=== PATIENT | female | born 1945 | race Caucasian/White ===

== ENCOUNTER → 2019-02-19 14:52 | Outpatient (CLI) | payer MEDICARE, OTHER, SELFPAY ==
--- NOTE | 2019-02-19 15:00 | DI.RAD.S_ITS ---
PROCEDURE: XR CHEST 2V INDICATIONS: MUSCLE CRAMPING TECHNIQUE: 2 views of the chest were acquired. COMPARISON: [facility], CR, XR CHEST 1 VIEW, 02/05/2018, 10:30. FINDINGS: Surgical changes and devices: None. Lungs and pleura: Lungs are clear. No pleural effusions or pneumothorax. Mediastinum: Mediastinal contours are normal. Heart size is normal. Bones and chest wall: No suspicious bony abnormalities. Soft tissues appear unremarkable. Note is made of convex rightward thoracolumbar junction and convex left toward lumbosacral spine scoliosis. Surgical clips clustered posterior left upper quadrant suggests prior splenectomy. IMPRESSION: A source of muscle cramping is not found. 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 Scoliosis as discussed, no definite acute disease. Dictated by: Dc Vann M.D. on 02/19/2019 at 16:12 Approved by: Dc Vann M.D. on 02/19/2019 at 16:13
== END ==
PROVIDERS: Visit Provider Internal Medicine
DX: R25.2 Cramp and spasm (principal)
CPT/HCPCS: 71046

== ENCOUNTER → 2019-02-21 10:45 | Outpatient (CLI) | payer MEDICARE, OTHER, SELFPAY ==
[2019-02-21 11:25] LABS: BUN Creatinine Ratio 18.3 (6-22); Blood Urea Nitrogen 11 mg/dL (7-17); Calcium 10.2 mg/dL (8.4-10.2); Carbon Dioxide 29 mmol/L (22-32); Chloride 97 mmol/L (98-107); Creatine Kinase 38 U/L (30-135); Estimated Glomerular Filt Rate > 60.0 mL/min (>60); Glucose 92 mg/dL (80-110); HEMOLYSIS < 15 (0-50); Magnesium 2.3 mg/dL (1.6-2.3); Potassium 3.9 mmol/L (3.4-5.1); Sodium 136 mmol/L (137-145)
[2019-02-21 16:02] LABS: Calcium 24 Hour Urine 273 mg/day (100-300); Calcium Urine Random 10.9; Collection Time Urine 24 Hours; Total Volume Urine 2500 mL
[2019-02-21 16:06] LABS: Collection Time Urine 24 Hours; Creatinine 24 Hour Urine 658 mg/day (800-1800); Creatinine Urine Random 26.3 mg/dL; Total Volume Urine 2500 mL
[2019-02-23 11:51] LABS: Aldolase 3.8 U/L (< 8.2)
[2019-02-23 13:57] LABS: Ionized Calcium 5.5 mg/dL (4.8-5.6)
[2019-02-23 15:40] LABS: Parathyroid Hormone Int 37 pg/mL (14-64)
== END ==
PROVIDERS: Visit Provider Internal Medicine
DX: E83.52 Hypercalcemia (principal); R25.2 Cramp and spasm
CPT/HCPCS: 36415; 80048; 82085; 82330; 82340; 82550; 82570; 83735; 83970

== ENCOUNTER → 2019-03-22 10:21 | Outpatient (CLI) | payer MEDICARE, OTHER, SELFPAY ==
[2019-03-22 10:41] LABS: Bacteria Urine None Seen; RBC Urine None Seen (0-5/HPF); WBC Urine None Seen (0-5/HPF)
[2019-03-22 11:52] LABS: Hematocrit 41.3 % (36-46); Hemoglobin 13.5 g/dL (12.0-16.0); Mean Corpuscular HGB Conc 32.8 % (30-36); Mean Corpuscular Hemoglobin 30.4 PG (26-34); Mean Corpuscular Volume 92.7 fL (80-100); Platelet Count 419 X10^3/uL (150-400); Red Blood Cell Count 4.46 X10^6/uL (4.0-5.2)
[2019-03-22 11:54] LABS: Add Manual Diff / Slide Review YES
[2019-03-22 11:55] LABS: Appearance Urine UA CLEAR; Bilirubin Urine UA NEGATIVE (NEGATIVE); Color Urine UA YELLOW; Glucose Urine UA NEGATIVE (Negative); Hemoglobin A1C% w Est Avg Glu 5.2 % (4.0-6.0); Ketones Urine UA NEGATIVE (NEGATIVE); Leukocyte Esterase Urine UA NEGATIVE (NEGATIVE); Nitrite Urine UA NEGATIVE (Negative); Occult Blood Urine UA NEGATIVE (Negative); Protein Urine UA NEGATIVE (Negative); Specific Gravity Urine UA 1.015 (1.000-1.035); Urobilinogen Urine UA 0.2 E.U./dL (0.2)
[2019-03-22 12:16] LABS: BUN Creatinine Ratio 16.7 (6-22); Blood Urea Nitrogen 10 mg/dL (7-17); Carbon Dioxide 26 mmol/L (22-32); Chloride 99 mmol/L (98-107); Estimated Glomerular Filt Rate > 60.0 mL/min (>60); Glucose 98 mg/dL (80-110); HEMOLYSIS < 15 (0-50); Potassium 4.1 mmol/L (3.4-5.1); Sodium 134 mmol/L (137-145)
[2019-03-22 12:24] LABS: Neutrophils Absolute Manual 2150 /uL (3000-5900); Total Cells Counted 100
[2019-03-22 12:26] LABS: RBC Morphology Norm
[2019-03-22 12:33] LABS: Culture Indicated Urine Cult Not Indicated; Urine Comments Microscopic Normal
== END ==
PROVIDERS: Visit Provider Orthopaedic Surgery
DX: Z01.818 Encounter for other preprocedural examination (principal); Z01.812 Encounter for preprocedural laboratory examination; N39.9 Disorder of urinary system, unspecified; Z13.1 Encounter for screening for diabetes mellitus; R73.9 Hyperglycemia, unspecified
CPT/HCPCS: 36415; 80048; 81001; 83036; 85025; 93005; 93010

== ENCOUNTER 2019-05-20 06:00 | Inpatient (IN) | payer MEDICARE, OTHER, SELFPAY ==
[2019-05-13 12:44] VITALS: BMI 15.9
[2019-05-20] VITALS (43 sets, daily range): BP systolic 65–182; BP diastolic 29–91; PULSE 38–127; RESP 9–22; TEMP 36.4–36.6; O2SAT 88–100; BMI 16.2
--- NOTE | 2019-05-20 | DI.RAD.S_ITS ---
PROCEDURE: XR PELVIS 1-2V INDICATIONS: RIGHT ANTERIOR TOTAL HIP TECHNIQUE: Intra-operative view of the pelvis and hip acquired. COMPARISON: None. FINDINGS: Bones: Intraoperative devices prior to placement of arthroplasty prostheses are in expected positions. No fractures or suspicious bony lesions. Soft tissues: Expected intra-articular gas is present. IMPRESSION: Expected intraoperative appearance of right hip arthroplasty. Dictated by: Kristan Cardoso M.D. on 05/20/2019 at 9:04 Approved by: Kristan Cardoso M.D. on 05/20/2019 at 9:05
--- NOTE | 2019-05-20 06:00 | DI.RAD.S_ITS ---
PROCEDURE: XR PELVIS 1-2V INDICATIONS: POST OPERATIVE RIGHT HIP TECHNIQUE: Single view(s) of the pelvis acquired. COMPARISON: [facility], CR, XR PELVIS 1-2V, 05/20/2019, 8:37. FINDINGS: Bones: No fractures or dislocations. No suspicious bony lesions. Post surgical changes related to right hip arthroplasty. Expected postoperative alignment Soft tissues: Overlying right hip soft tissue post surgical changes IMPRESSION: Expected postoperative alignment Dictated by: Roberto Castellano M.D. on 05/20/2019 at 11:02 Approved by: Roberto Castellano M.D. on 05/20/2019 at 11:03
[2019-05-20] MEDS: LACTATED RINGERS 1,000 ML 42 ML IV (07:07)
[2019-05-20] MEDS: PREGABALIN 75 MG CAPSULE PO (07:12)
[2019-05-20] MEDS: CELECOXIB 200 MG CAPSULE PO (07:12)
[2019-05-20] MEDS: ACETAMINOPHEN 325 MG TABLET 975 MG PO (07:12)
--- NOTE | 2019-05-20 07:57 | PM.PREOP ---
Pre-operative Note Interval Note History & Physical reviewed/Exam performed by Physician: Yes Changes to H&P: No
--- NOTE | 2019-05-20 08:41 | SUR.OPER ---
Supine, head on pillow, torso on transfer sheet. Iliac crest at flex of foot end of table. Both arms secured on arm boards <90 degrees abduction.
[2019-05-20] MEDS: CEFAZOLIN 1 GM VIAL IV (08:50)
[2019-05-20] MEDS: ROPIVACAINE 0.5% PF 5 MG/ML 20ML VIAL 10 ML INJ (08:52)
[2019-05-20] MEDS: KETOROLAC 30 MG/ML VIAL IV (08:54)
[2019-05-20] MEDS: MORPHINE 4 MG/ML INJ INJ (08:55)
--- NOTE | 2019-05-20 09:35 | SUR.PREOP ---
Dr. Ma notified pt given Celebrex per order. No new orders. Glasses to given to spouse
--- NOTE | 2019-05-20 09:47 | PM.OP.1 ---
Operative Date/Time/Diagnoses Date of procedure: 05/20/19 Time of procedure: 09:47 Pre-op diagnosis: Right hip degenerative joint disease Post-op diagnosis: same Procedure & Clinicians Procedure: Right total hip arthroplasty, direct anterior approach (CPT code 41208 with workers compensation claims assistant) Same procedure as scheduled: Yes Indications: Patient is an 73-year-old female with severe right hip DJD. The patient has pain with activities and at rest, limited ambulation and activity tolerance, difficulties with ADLs, and failure of conservative treatment. We have discussed the nature of condition, treatment options, risks and benefits, and patient elects to proceed with total hip arthroplasty via direct anterior approach and gives informed consent. Surgeon: Benjamín Ma Fructose Loader: Brian Carlton Anesthesia Type: General Operative Notes Closure Type: primary Specimen(s): none sent Prosthetic devices, grafts, tissues, transplants, or devices: Acetabulum: Bell and Nephew R3 acetabular component size 50 mm Femoral component: Bell and Nephew Anthology stem size 7 with standard offset Femoral head: 32 mm -3 cobalt chrome Estimated Blood Loss (mL): 200 Blood products transfused: none Procedure in detail: Patient brought to the operating room and after satisfactory induction of a general anesthetic and administration of IV antibiotics was placed in the supine position on the [place] table with all bony prominences well padded and the feet in the ski boots. Right hip and lower extremity prepped and draped in the usual sterile fashion, and then a longitudinal incision created just distal and lateral to the ASIS. This was carried down to the fascia which was then divided longitudinally and the tensor fascia brock muscle was stripped and retracted posteriorly into the intermuscular interval. Cobra retractor placed at the superior femoral neck and a Cobra retractor placed distally. The anterior circumflex vessels were identified clamped and cauterized. The pericapsular fat was then excised and medial retractors placed. Capsulotomy performed in the anterior medial capsule was retracted medially and the lateral capsule was excised. Femoral neck cut was then determined with fluoroscopic assistance, then the femoral neck cut made with the oscillating saw and femoral head removed with a corkscrew device. Acetabular retractors then placed an acetabular labrum and osteophytes were excised. Sequential reaming of the acetabulum to 49 mm was performed with an excellent fit and stability with a 49 trial. Fluoroscopic images with the trial in place showed excellent position and alignment. The trial was then removed and a size 50 mm Bell and Nephew R3 acetabular component was selected inserted and impacted into position with excellent position and fixation achieved again confirmed with fluoroscopic images. Posterior and superior releases were then further performed and the leg positioned in extension external rotation and adduction. Retractors placed and the canal entered using a box osteotome followed by the canal finer and the chili pepper broach. Size 1 broach was then inserted and fluoroscopic images in AP and lateral planes confirmed satisfactory position and starting point for the broaches. The femoral canal was then broached up to a 7 with an excellent snug fit with the [address] and a trial reduction was performed with a 32 mm +0 ball. Fluoroscopic images with the hip reduced demonstrated excellent position of the implant and good leg length although slightly long. Trial and broach were then removed and the broach was replaced with a size 7 Bell and Nephew anthology stem and another trial reduction was performed with a -3 ball which revealed excellent leg length, and position and sizing of the implants. There was excellent stability to at least 90? of external rotation with negative push-pull with a bone hook. The hip was dislocated and a 32 mm -3 cobalt chrome ball was placed on the implant and impacted. The hip reduced and the above characteristics were achieved and final fluoroscopic images were satisfactory. Pericapsular tissues were infiltrated with combination of ropivacaine, morphine, and Toradol. The TFL fascia was closed with a running 1. Vicryl the subcutaneous layer was closed with 2 O Vicryl and skin closed with a running intracuticular stitch and skin adhesive. Sterile dressings applied. Anesthesia terminated, and the patient taken to postanesthetic recovery in satisfactory condition. Complications: none Condition: stable Disposition: PACU Plan for aftercare: Patient will be admitted to the acute care [facility], and anticipate discharge on postop day 1 or 2 with follow-up in office in 10-14 days. Outpatient physical therapy will be arranged and patient will gradually increase activity as tolerated. Patient will continue use of postoperative Lovenox for 10 days postop.
--- NOTE | 2019-05-20 11:09 | SUR.PHASEI ---
0945 pt arrived recovery still under the effects of sedation and when monitoring began it was noted HR was 137. Pt received 20mg of esmolol IVP by anesthesia which brought her HR down to 1 teens which appeared as afib on the monitor. HR steadily climbed back up to the 130's and pt was given 1 mg of metoprolol which eventually lowered her HR to the 70's-90's and we were able to confirm along with the results of the 12 lead pt was in Afib/Aflutter. After careful monitoring, pt was deemed stable for transferred to ICU 104 @ 1057. Report to Melissa/Portillo via phone with update upon arrival in ICU. She was left in their care in stable condition. Labs ordered by this RN as VO Dr Brumfield: CBC,CMP,BNP and cardiac enzymes. This was relayed to RN's on duty.
[2019-05-20] MEDS: LACTATED RINGERS 1,000 ML 125 ML IV ×2 (11:15→16:41)
[2019-05-20 11:18] LABS: Add Manual Diff / Slide Review NO; Basophils Absolute Auto 100 /uL (0-100); Basophils Percent Auto 0.8 % (0-2); Eosinophils Absolute Auto 0 /uL (0-450); Eosinophils Percent Auto 0.3 % (2-4); Hematocrit 35.6 % (36-46); Hemoglobin 12.2 g/dL (12.0-16.0); Lymphocytes Absolute Auto 1600 /uL (1100-4500); Lymphocytes Percent Auto 16.1 % (25-40); Mean Corpuscular HGB Conc 34.3 % (30-36); Mean Corpuscular Hemoglobin 31.2 PG (26-34); Mean Corpuscular Volume 90.9 fL (80-100); Monocytes Absolute Auto 400 /uL (0-900); Monocytes Percent Auto 3.9 % (3-14); Neutrophils Absolute Auto 7800 /uL (1500-7000); Neutrophils Percent Auto 78.9 % (50-75); Platelet Count 341 X10^3/uL (150-400); Red Blood Cell Count 3.92 X10^6/uL (4.0-5.2); Red Cell Distribution Width 12.8 % (11.6-14.8); White Blood Cell Count 9.9 X10^3/uL (4.5-11.0)
--- NOTE | 2019-05-20 11:30 | PT.IPTN ---
Current Diagnoses Unilateral primary osteoarthritis, right hip (05/20/19) Scoliosis, unspecified (05/20/19) Surgery Performed Operation Date: 05/20/19 07:45 Actual Procedures p Total Hip Arthroplasty/Anterior Approach(Right) - Benjamín Ma MD Physical Therapy Treatment Note Notes Pt only recently arrived to ICU, RN reports pt not ready yet, ok to check back later in the afternoon.
[2019-05-20 11:33] LABS: Alanine Aminotransferase 63 IU/L (9-52); Albumin 3.5 g/dL (3.5-5.0); Albumin Globulin Ratio 1.5 (1.0-2.8); Alkaline Phosphatase 59 U/L (38-126); Aspartate Aminotransferase 61 IU/L (14-36); BUN Creatinine Ratio 17.5 (6-22); Bilirubin Total 0.4 mg/dL (0.2-1.3); Blood Urea Nitrogen 7 mg/dL (7-17); Calcium 8.9 mg/dL (8.4-10.2); Carbon Dioxide 25 mmol/L (22-32); Chloride 105 mmol/L (98-107); Creatine Kinase 83 U/L (30-135); Estimated Glomerular Filt Rate > 60.0 mL/min (>60); Globulin 2.4 g/dL (1.7-4.1); Glucose 168 mg/dL (80-110); HEMOLYSIS < 15 (0-50); Potassium 3.6 mmol/L (3.4-5.1); Sodium 137 mmol/L (137-145); Total Protein 5.9 g/dL (6.3-8.2)
[2019-05-20 11:37] LABS: B Type Natriuretic Peptide < 100 (<100)
[2019-05-20 11:44] LABS: Troponin I < 0.012 ng/mL (0.01-0.034)
--- NOTE | 2019-05-20 13:03 | PM.CN ---
History of Present Illness Date Patient Seen: 05/20/19 Chief complaint: [id number] Reason for consult: New Onset ATrial Fibrillation Narrative: 73-year-old female who underwent anterior right total hip replacement today. In the recovery room the patient was found to have atrial fibrillation. She was given 2 doses of esmolol with improvement of her heart rate. The patient is lethargic following anesthesia. Her is at the bedside and provides most of the history. Apparently the patient has no history of cardiac disease, specifically no history of arrhythmia, congestive heart failure, or prior PA. She has a history of idiopathic thrombocytopenic purpura. She recently has had worsening of her degenerative joint disease and underwent hip replacement surgery. She is osteoporotic. Patient is on treatment for same. She is unable to provide any history at this time. While examining the patient her heart rate dropped to 29. She became markedly hypotensive with a blood pressure of 65 systolic. The patient was laid flat IV fluids were administered and her heart rate improved to 77 with a blood pressure of 124/61. She is awake and responded. I am asked to assist with management of her new onset atrial fibrillation. [facility] Medical History Back pain (Acute) Bilateral knee pain (Acute) Chronic ITP (idiopathic thrombocytopenia) (Acute) Chronic nausea (Acute) DVT (deep venous thrombosis) (Acute ~1975) Edema (Acute) Migraines (Acute) Numbness (Acute) Osteoarthritis (Acute) Pneumonia (Acute) RLS (restless legs syndrome) (Acute) Scoliosis (Acute) Surgical History (Updated 05/13/19 @ 13:24 by Lizet Leone RN) Hx of appendectomy (Acute) Hx of bilateral cataract extraction (Acute ~2017) Hx of splenectomy (Acute ~1979) Hx of tonsillectomy (Acute) Social History household members: spouse Smoking Status: Never smoker alcohol intake: former Social History household members: spouse Smoking Status: Never smoker alcohol intake: former Meds Home Medications Medication Instructions Recorded Confirmed Type alendronate [Fosamax] 70 mg PO QWEEK 05/13/19 05/20/19 History multivitamin 1 cap PO DAILY 05/13/19 05/20/19 History potassium 99 mg PO DAILY 05/13/19 05/20/19 History Allergies Allergy/AdvReac Type Severity Reaction Status Date / Time petrolatum,white Allergy Severe r/t ITP Verified 05/20/19 06:44 [From Petroleum Jelly] oxycodone [From Percocet] AdvReac Severe Vomiting, Verified 05/20/19 06:44 dizziness cortisone AdvReac Unknown avoids Verified 05/20/19 07:46 steroids due to hx of chronic steroid use Aspirin Allergy Severe Avoid r/t Uncoded 05/13/19 13:05 chronic ITP Tetracycline Allergy Severe Hives Uncoded 05/13/19 13:05 Review of Systems Review of Systems unobtainable due to mental status Exam Vital Signs (past 8 hours): - 05/20/19 06:52 05/20/19 09:45 05/20/19 09:49 Temperature 98 F 97.6 F Pulse Rate 102 H 118 H 100 H Respiratory Rate 15 9 L 10 L Blood Pressure 182/91 H 101/45 L 99/52 L Pulse Oximetry 99 88 L 95 05/20/19 09:52 05/20/19 09:54 05/20/19 09:59 Temperature Pulse Rate 127 H 95 H 111 H Respiratory Rate 10 L 10 L 13 Blood Pressure 103/60 108/58 L 104/60 Pulse Oximetry 94 96 97 05/20/19 10:04 05/20/19 10:25 05/20/19 10:30 Temperature Pulse Rate 92 H 112 H 97 H Respiratory Rate 10 L 14 13 Blood Pressure 95/68 120/89 97/40 L Pulse Oximetry 97 98 100 05/20/19 10:45 05/20/19 10:50 Temperature Pulse Rate 78 86 Respiratory Rate 10 L 12 Blood Pressure 79/38 L 82/47 L Pulse Oximetry 100 99 Oxygen Delivery Method Nasal Cannula Oxygen Flow Rate 4 Narrative Exam Narrative: Pleasant elderly female lying in bed in no obvious distress HEENT: Normocephalic atraumatic, oropharynx is clear, neck is supple Lungs: Clear to auscultation Cardiac exam: Irregularly irregular normal S1-S2 with a 2/6 systolic ejection murmur Abdomen: Soft nontender nondistended Extremities: Right hip anterior incision a dry, ice in place lower extremities no edema, reflexes are easily palpable Neuro exam patient is lethargic postanesthesia, she is unable to participate with exam, she does rouse and is appropriate. Objective Labs Result Diagrams: 05/20/19 11:08 05/20/19 11:08 Labs: Laboratory Results - last 24 hr 05/20/19 05/20/19 05/20/19 11:00 11:08 11:08 WBC 9.9 RBC 3.92 L Hgb 12.2 Hct 35.6 L MCV 90.9 MCH 31.2 MCHC 34.3 RDW 12.8 Plt Count 341 Neut % (Auto) 78.9 H Lymph % (Auto) 16.1 L [place] % (Auto) 3.9 Eos % (Auto) 0.3 L Baso % (Auto) 0.8 Neut # (Auto) 7800 H Lymph # (Auto) 1600 [place] # (Auto) 400 Eos # (Auto) 0 Baso # (Auto) 100 Sodium 137 Potassium 3.6 Chloride 105 Carbon Dioxide 25 BUN 7 Creatinine 0.40 L Estimated GFR > 60.0 BUN/Creatinine Ratio 17.5 Glucose 168 H Calcium 8.9 Total Bilirubin 0.4 AST 61 H ALT 63 H Alkaline Phosphatase 59 Total Creatine Kinase 83 CK-MB (CK-2) TNP CK-MB (CK-2) Rel Index TNP Troponin I < 0.012 B-Natriuretic Peptide Total Protein 5.9 L Albumin 3.5 Globulin 2.4 Albumin/Globulin Ratio 1.5 Nasal Screen MRSA (PCR) Negative for mrsa 05/20/19 11:08 WBC RBC Hgb Hct MCV MCH MCHC RDW Plt Count Neut % (Auto) Lymph % (Auto) [place] % (Auto) Eos % (Auto) Baso % (Auto) Neut # (Auto) Lymph # (Auto) [place] # (Auto) Eos # (Auto) Baso # (Auto) Sodium Potassium Chloride Carbon Dioxide BUN Creatinine Estimated GFR BUN/Creatinine Ratio Glucose Calcium Total Bilirubin AST ALT Alkaline Phosphatase Total Creatine Kinase CK-MB (CK-2) CK-MB (CK-2) Rel Index Troponin I B-Natriuretic Peptide < 100 Total Protein Albumin Globulin Albumin/Globulin Ratio Nasal Screen MRSA (PCR) Assessment & Plan Assessment & Plan narrative: 1. 73-year-old female with a history of osteoporosis, chronic DJD of the right hip status post anterior hip replacement. 2. New onset atrial fibrillation, patient received esmolol in the postoperative recovery room. Here in the ICU she became bradycardic and hypotensive. Since arrival to the ICU her heart rate has been well maintained under 100. She had times continues to dip into the 40s. As such the patient will not be started on rate controlling medication at this time. Will obtain a cardiac echo and monitor her closely. She is already on aspirin b.i.d. as DVT prophylaxis per no further medical intervention at this time. Given her tachy and bradycardic episodes concern is raised regarding sick sinus syndrome will observe the patient here in the ICU and should she again becomes symptomatic and prolonged with bradycardia consider cardiology consultation for pacemaker placement if appropriate. In the interim will observe her here in the postoperative state. 3. Osteoporosis will continue her usual a litter [place] and multivitamin. Would consider increasing her of vitamin-D and calcium 1 she is able to take p.o.. Thank you very much for this consultation will continue follow with you.
--- NOTE | 2019-05-20 13:03 | CM.DANOTE ---
Addendum entered by Louann Silverio LPN 05/21/19 08:59: Checked in this morning re status of pt: noted that she did transfer early this mornin to [facility] for cardiac care. Addendum entered by Louann Silverio LPN 05/20/19 13:46: Further documentation available now shows that pt did have some cardiac complications post surgery leading to her placement in ICU. Hospitalist Dr. Becerril is now consulting. Original Note: Discharge Planning/Care Management DCP: assessment: initiated. Case received and discussed in Team Rounds. Documentation reveals that pt is a 73 year old female who admitted early this morning for a planned SEVEN: anterior approach. Surgeon: Dr. Ma. Payer: Medicare and INPT admission status: confirmed by UR RN Primitivo Pt's pre-op plan indicates that she expects to go home with family help when she is ready for d/c. She has just now returned from surgery and is placed in the ICU setting (floor status/ confirmed by UR team). PT did attempt to see pt but pt not yet ready to start therapy. P: check in with pt later today or tomorrow morning for introduction of self and role and assist with any d/c needs that may unfold. PT is going to try to see her later this afternoon. CM Discharge Assessment Start: 05/20/19 13:01 Freq: Status: Active Protocol: Document 05/20/19 13:03 ITV (Rec: 05/20/19 13:03 ITV [id number]) Discharge Planning Assessment Advance Directives? Yes Advance Directives on File Yes History Provided By Medical Record Prior Living Arrangements House Household Members spouse Review Status In Process Pre-Anesthesia Assessment Start: 05/13/19 12:44 Freq: Status: Active Protocol: Document 05/13/19 12:44 CAB (Rec: 05/13/19 13:44 CAB [id number]) Pre-Anesthesia Assessment Patient Information Reviewed Via Phone Assessment Assessment Completed With Patient Diagnostic Results CBC EKG Urinalysis Other Comment A1c. Labs/EKG at 03/22/19 Primary Care Provider Casandra Magallon Seen Specialist in Last 12 Months Yes Specialist Seen Opthamologist/Inside Sales Assistant Orthopedist Primary Language Lao Supervisor Telephone Answering Service Required No Height 168.91 cm Weight 45.359 kg Body Mass Index (BMI) 15.9 Hearing Ability Normal Visual Impairment No Limitations Visual Assist None Dentition Type Teeth, Natural Present Barriers to Learning None Other Aids No Hx Anesthesia Reactions No Hx Family Anesthesia Reaction No Hx Malignant Hyperthermia No Hx Blood Transfusions Yes: Multiple r/t ITP Hx Blood Transfusion Reaction No Anesthesia Review Requested No Regional Extension Service Specialist No alcohol intake former Smoking Status Never smoker Substance Use Type does not use Pain Present Pain Reported Musculoskeletal Symptoms Abnormal Gait Back Pain Difficulty Walking Joint Pain Muscle Cramps Muscle Spasms History of Falling (Recent or History of No ) Patient is completely paralyzed or No completely immobile Mental Status Oriented to own ability Is patient on oxygen? No Does patient have SAWYER/SOB No Hx Sleep Apnea No Currently Taking a Beta Clive No Can You Climb a Flight of Stairs Without Yes SOB Hx Chest Pain No Hx SOB No Hx Syncope or Dizziness Yes: If I don't eat every 3 hours Anti-Coagulant Therapy No Has a Head Start Teacher No Cardiac Testing No Hx Pacemaker/ICD No Pacemaker Rep Required? No Cardiac Clearance Received Not Applicable dysphagia No: Dry mouth at night, occasional trouble w/dry foods Bladder Pattern Frequency Incontinent Urgency Urinary Catheter Present No Hx Urinary Self Catheterization No Diabetes No HgbA1C 5.2 Date 03/22/19 Patient No Lactating No Hx Drug Resistant Organism No Presence of External or Internal Medical Yes: Bilat eye lens Devices Have you traveled outside the [facility] States in the last 30 days? Marital Status Lives With spouse Prior Living Arrangements House Number of Floors (Floors) 3 or More Floors Support System Spouse Does the Patient Have Assistance After Yes Surgery Patient Discharge Plan Description Return Home Comment Pt advised overnight length of stay per surgeon's office Feels Safe in Current Environment Yes Been Physically Hurt or Threatened By a No Person in Current Environment Do you have thoughts of harming yourself None or others? Are you currently considering suicide? No Do you have a plan to hurt yourself or No Plan others? Do You Have Any Spiritual Beliefs That No May Affect Your HC Choices? Do You Have Any Cultural Practices That No May Affect Your HC Choices? Spiritual Referral None Who Can We Speak to About Patient's Care Family, friends Identifying Code for Release of Patient Declines to issue Information Health Care Proxy/Next of Kin Iglesia () Health Care Proxy or [phone] Emergency Contact Name Iglesia () Emergency Contact or [phone] Advance Directives? Yes Advance Directives on File Yes PAC Instructions Durable medical equipment Medications to take/avoid Nasal antibiotic No ETOH/petroleum product on skin DOS NPO Post-op transportation Pre-surgical wash Sturdy shoes/comfortable clothes Do not bring valuables and remove jewelry
[2019-05-20] MEDS: ONDANSETRON 4 MG/2 ML INJ IV ×2 (13:20→19:48)
--- NOTE | 2019-05-20 13:23 | PC.NURSE ---
Addendum entered by Roberto Mckinney R.N. 05/20/19 14:38: Rec'd call from Dr. Becerril. Per Dr. Becerril's consult with Dr. Blanoc (cardiology), echo should be completed STAT. Notified distribution engineering technologist of new STAT order. Original Note: 1300- Dr. Becerril on rounds. Noted BP 69/35 (47) HR 65, A fib. Pt drowsy/asleep but rousable to verbal stimuli. Lowered HOB to approx 20 degrees to reassess BP. Upon doing so, pt states Put my head back up. I'm going to throw up. While elevating HOB, pt HR noted to be dropping in to the 30s. Requested Dr. Becerril come to bedside. VORB for IVFs wide open. HR dropped to 20s on bedside monitor and pt briefly unresponsive prior to HR picking up to 80s, Afib. BP/HR stabilized with IVF bolus. VORB Dr. Becerril to continue IVFs at previously ordered rate. Pt remains drowsy. at bedside.
--- NOTE | 2019-05-20 14:30 | DI.ECHO.S_ITS ---
[facility] +---------+ : : [address] : : : : [id number] : : : : Phone: [phone]+ Echocardiogram Report + + :Name: MODESTO ROWAN Study Date: 05/20/2019 Height: 66 in : :[facility] Weight: 102 lb : : Gender: Female BSA: 1.5 m2 : :: 1945 Age: 73 yrs BP: 128/58 mmHg: :Reason For Study: Atrial fibrillation : : Performed By: Sue Ruelas : :Referring: CARLY HODGE : + + Interpretation Summary The left ventricle is normal in size. The ejection fraction is estimated to be 60-65%. Base of the RV appears to be mildly dilated. The right ventricular systolic function is normal. There is mild aortic regurgitation. There is mild to moderate tricuspid regurgitation. The right ventricular systolic pressure is estimated to be at least 30 mmHg based on an estimated right atrial pressure of 3 mm Hg. Procedure: A two-dimensional transthoracic echocardiogram with color flow and Doppler was performed. The study quality was technically adequate. Most of the acoustic windows were suboptimal, but the best imaging was obtained from the subcostal window. The heart rate ranged between 65-69 bpm during the study. The patient was in normal sinus rhythm during the exam. Left Ventricle: The left ventricle is normal in size. There is normal left ventricular wall thickness. There is no thrombus. A false chord is noted (normal variant). The ejection fraction is estimated to be 60-65%. There are no focal wall motion abnormalities. MV E/A: 1.1 Med Peak E' Max: 7.5 cm/sec E/E' med: 10.2. Right Ventricle: A moderator band is seen in the right ventricle. Base of the RV appears to be mildly dilated. The right ventricular systolic function is normal. Atria: The left atrial size is normal. Right atrial size is normal. Mitral Valve: The mitral valve leaflets appear borderline thickened, but open well. There is a flat closure plane of the the mitral valve leaflets. There is trace mitral regurgitation. Aortic Valve: The aortic valve is trileaflet. The aortic valve opens well. There is no aortic valve stenosis. There is mild aortic regurgitation. Tricuspid Valve: The tricuspid valve leaflets are thin and pliable. There is mild to moderate tricuspid regurgitation. The right ventricular systolic pressure is estimated to be at least 30 mmHg based on an estimated right atrial pressure of 3 mm Hg. Pulmonic Valve: The pulmonic valve is not well seen, but is grossly normal. There is trace pulmonic regurgitation. Great Vessels: The aortic root is normal size. The dimensions of the ascending aorta are normal. The aortic arch is normal in size. The IVC is of normal diameter and collapses greater than 50% with a sniff. This suggests a low right atrial pressure of 3 mm Hg. Pericardium/ Pleura There is no pericardial effusion. There is no pleural effusion. MMode/2D Measurements & Calculations LVIDd: 4.0 cm Ao root diam: 3.0 cm LVIDs: 2.4 cm Aortic Jxn: 2.4 cm FS: 41.6 % asc Aorta Diam: 2.9 cm IVSd: 1.00 cm Ao Arch Diam (Prox Trans): 2.7 cm LVPWd: 0.89 cm LV horn. diameter/BSA (cm/m^2): 2.7 LV sys. diameter/BSA (cm/m^2): 1.6 LA dimension: 3.1 cm RA long axis: 4.4 cm RA area: 13.4 cm2 RA vol: 34.4 ml RA : 22.9 ml/m2 RVDd major: 4.7 cm RVD1 (basal): 2.9 cm RVD2 (mid): 2.7 cm Doppler Measurements & Calculations Ao V2 max: 161.5 cm/sec MV E max max: 76.6 cm/sec Ao V2 mean: 107.2 cm/sec MV A max max: 70.4 cm/sec Ao max P.4 mmHg MV E/A: 1.1 Ao mean P.5 mmHg Med Peak E' Max: 7.5 cm/sec Ao V2 VTI: 36.9 cm E/E' med: 10.2 Lat Peak E' Max: 7.7 cm/sec E/E' lat: 9.9 E/e' average: 10.0 MV dec time: 0.21 sec MV P1/2t: 62.1 msec TR max max: 261.9 cm/sec MV P1/2t max max: 76.3 cm/sec TR max P.4 mmHg MVA(P1/2t): 3.5 cm2 PA V2 max: 74.4 cm/sec PA V2 mean: 49.4 cm/sec PA mean P.1 mmHg PA Accel Time: 0.19 sec Reading Physician:BEKA
[2019-05-20] MEDS: METOCLOPRAMIDE 10 MG/2 ML INJ IV ×2 (14:32→22:55)
[2019-05-20 14:45] LABS: Hematocrit 34.9 % (36-46); Hemoglobin 11.7 g/dL (12.0-16.0)
--- NOTE | 2019-05-20 14:51 | PT.IPTN ---
Current Diagnoses Unilateral primary osteoarthritis, right hip (05/20/19) Scoliosis, unspecified (05/20/19) Surgery Performed Operation Date: 05/20/19 07:45 Actual Procedures p Total Hip Arthroplasty/Anterior Approach(Right) - Benjamín Ma MD Physical Therapy Treatment Note Notes Per RN pt is still not medically appropriate to participate in therapy assessment (cardiac issues), will hold the remainder of the day and try again tomorrow pending pt's status.
--- NOTE | 2019-05-20 15:22 | PC.NURSE ---
Admit- To room 104 from [facility], denies pain,denies nausea. Tele in place, rate aflutter/afib, occasional short bursts of SR, not sustained. See Roberto RN note for tele during this RN break. 1415-Pt had 25 sec pause with minimal response during episode, Dr becerril notified, and consulting with cardiology, echo for this afternoon STAT, Dr Becerril will put in orders as atropine and transcutaneous pacing may be needed, pads at bedside, Pt and updated on status and POC. IVF infusing to R FA @ 125, denies CP, I just dont feel well Emesis x1, Reglan given.
[2019-05-20] MEDS: SODIUM CHLORIDE 0.9% 1,000 ML 500 ML IV (16:30)
--- NOTE | 2019-05-20 16:35 | DI.CT.S_ITS ---
PROCEDURE: CT ANGIO CHEST PE PROTOCOL INDICATIONS: SHORTNESS OF BREATH AFTER SURGERY TODAY TECHNIQUE: After the administration of intravenous contrast, 2 mm thick sections acquired from the pulmonary apices to the posterior costophrenic angles. 3-dimensional maximum intensity projection (MIP) coronal and sagittal reformats were then acquired through the thorax. For radiation dose reduction, the following was used: automated exposure control, adjustment of mA and/or kV according to patient size. COMPARISON: None. FINDINGS: Image quality: There is streak artifact associated with the metallic hardware. Pulmonary arteries: Pulmonary arteries are normal in size, and demonstrate no intraluminal filling defects to suggest central pulmonary embolism. Lungs and pleura: Mild scarring can be seen involving the dependent lung bases. No pleural effusions or pneumothorax. Central and peripheral airways are patent. Mediastinum: Heart size is normal, without pericardial effusion. No mediastinal or hilar adenopathy. Thoracic aorta is normal in caliber and enhancement. Esophagus is normal in caliber, without hiatal hernia. Bones and chest wall: No suspicious bony lesions. Ribs and thoracic spine appear intact throughout. Age-appropriate bony degenerative changes are seen. Mild dextroconvex scoliotic curvature is seen. Thyroid gland demonstrates no significant CT abnormality. No axillary or supraclavicular adenopathy. Abdomen: Clips with streak artifact are seen posterior to the spleen. The spleen demonstrates a highly lobulated appearance, which is likely related to regeneration. The visualized portions of the upper abdominal structures are otherwise unremarkable for imaging technique. IMPRESSION: Negative for pulmonary embolism. Incidental note is made of: Postoperative change of the spleen, with associated streak artifact. Dextroconvex scoliotic curvature. Dictated by: Elie Mancini M.D. on 05/20/2019 at 16:14 Approved by: Elie Mancini M.D. on 05/20/2019 at 16:17
--- NOTE | 2019-05-20 17:57 | PM.CN ---
History of Present Illness Date Patient Seen: 05/20/19 Chief complaint: [id number] Reason for consult: For atrial fibrillation flutter, bradycardia Narrative: This 73 years old pleasant female who denies any history of diabetes mellitus or hypertension or hyperlipidemia or previous history of myocardial infarction or congestive heart failure or rheumatic heart disease or atrial fibrillation came for elective right hip replacement surgery. This morning in the recovery patient of left atrial fibrillation with fast ventricular rate and received 2 doses of IV esmolol. She was transferred to ICU. She was lethargic. In the ICU she was nauseated and had 1 episode of vomiting. That time patient dropped her heart rate to around 29 beats per minute as well as systolic blood pressure dropped to 65. She was given IV fluid. She responded to IV fluid. Repeat CBC did not reveal any significant drop. Troponin was normal. When I arrived, echocardiogram was just done. I just reviewed her echocardiogram immediately. Overall LV function appears to be preserved. RV function appears to be preserved. No critical valvular pathology. IVC is not dilated. No significant pericardial effusion. Patient denies any active chest pain or shortness of breath. She is lying down flat. No PND orthopnea fever chills or active bleeding from the surgical site or stroke-like symptoms. She is not tachypneic or tachycardic. She is converted to sinus rhythm. At present rhythm is sinus. Blood pressure has recovered. [facility] Medical History Back pain (Acute) Bilateral knee pain (Acute) Chronic ITP (idiopathic thrombocytopenia) (Acute) Chronic nausea (Acute) DVT (deep venous thrombosis) (Acute ~1975) Edema (Acute) Migraines (Acute) Numbness (Acute) Osteoarthritis (Acute) Pneumonia (Acute) RLS (restless legs syndrome) (Acute) Scoliosis (Acute) Surgical History Hx of appendectomy (Acute) Hx of bilateral cataract extraction (Acute ~2017) Hx of splenectomy (Acute ~1979) Hx of tonsillectomy (Acute) Social History household members: spouse Smoking Status: Never smoker alcohol intake: former Social History household members: spouse Smoking Status: Never smoker alcohol intake: former Meds Home Medications Medication Instructions Recorded Confirmed Type alendronate [Fosamax] 70 mg PO QWEEK 05/13/19 05/20/19 History multivitamin 1 cap PO DAILY 05/13/19 05/20/19 History potassium 99 mg PO DAILY 05/13/19 05/20/19 History Allergies Allergy/AdvReac Type Severity Reaction Status Date / Time petrolatum,white Allergy Severe r/t ITP Verified 05/20/19 06:44 [From Petroleum Jelly] oxycodone [From Percocet] AdvReac Severe Vomiting, Verified 05/20/19 06:44 dizziness cortisone AdvReac Unknown avoids Verified 05/20/19 07:46 steroids due to hx of chronic steroid use Aspirin Allergy Severe Avoid r/t Uncoded 05/13/19 13:05 chronic ITP Tetracycline Allergy Severe Hives Uncoded 05/13/19 13:05 Review of Systems Review of Systems Ten points review of systems were obtained and negative except as stated above Exam Vital Signs (past 8 hours): - 05/20/19 09:59 05/20/19 10:04 05/20/19 10:25 Pulse Rate 111 H 92 H 112 H Respiratory Rate 13 10 L 14 Blood Pressure 104/60 95/68 120/89 Pulse Oximetry 97 97 98 05/20/19 10:30 05/20/19 10:45 05/20/19 10:50 Pulse Rate 97 H 78 86 Respiratory Rate 13 10 L 12 Blood Pressure 97/40 L 79/38 L 82/47 L Pulse Oximetry 100 100 99 05/20/19 11:00 05/20/19 12:00 05/20/19 13:00 Pulse Rate 70 81 65 Respiratory Rate 15 12 12 Blood Pressure 101/50 L 110/58 L 69/35 L Pulse Oximetry 99 100 98 05/20/19 13:02 05/20/19 13:03 05/20/19 13:05 Pulse Rate 65 38 L 102 H Respiratory Rate 16 Blood Pressure 67/40 L 65/29 L 79/35 L Pulse Oximetry 100 100 05/20/19 13:06 05/20/19 13:20 05/20/19 13:30 Pulse Rate 74 81 80 Respiratory Rate 16 12 12 Blood Pressure 98/58 L 124/61 128/57 L Pulse Oximetry 100 100 100 05/20/19 14:00 07/08/19 14:50 Pulse Rate 88 98 H Respiratory Rate 14 12 Blood Pressure 123/66 Pulse Oximetry 100 100 Oxygen Delivery Method Nasal Cannula Oxygen Flow Rate 2 Const Other: No fever or chills Eyes Other: No significant anemia Neck Other: No significant JVD Chest Other: No chest wall tenderness Resp Other: No obvious crepitation or rhonchi Cardio Other: CVS S1-S2 normal, no S3 no S4 no significant murmur GI Other: Nontender, no obvious hepatosplenomegaly Neuro Other: No obvious motor or sensory deficit. Patient is alert orient to time place and person Extrem Other: No pedal edema Psych Other: Not agitated Objective Labs Result Diagrams: 05/20/19 14:40 05/20/19 11:08 Labs: Laboratory Results - last 24 hr 05/20/19 05/20/19 05/20/19 11:00 11:08 11:08 WBC 9.9 RBC 3.92 L Hgb 12.2 Hct 35.6 L MCV 90.9 MCH 31.2 MCHC 34.3 RDW 12.8 Plt Count 341 Neut % (Auto) 78.9 H Lymph % (Auto) 16.1 L [place] % (Auto) 3.9 Eos % (Auto) 0.3 L Baso % (Auto) 0.8 Neut # (Auto) 7800 H Lymph # (Auto) 1600 [place] # (Auto) 400 Eos # (Auto) 0 Baso # (Auto) 100 Sodium 137 Potassium 3.6 Chloride 105 Carbon Dioxide 25 BUN 7 Creatinine 0.40 L Estimated GFR > 60.0 BUN/Creatinine Ratio 17.5 Glucose 168 H Calcium 8.9 Total Bilirubin 0.4 AST 61 H ALT 63 H Alkaline Phosphatase 59 Total Creatine Kinase 83 CK-MB (CK-2) TNP CK-MB (CK-2) Rel Index TNP Troponin I < 0.012 B-Natriuretic Peptide Total Protein 5.9 L Albumin 3.5 Globulin 2.4 Albumin/Globulin Ratio 1.5 Nasal Screen MRSA (PCR) Negative for mrsa 05/20/19 05/20/19 11:08 14:40 WBC RBC Hgb 11.7 L Hct 34.9 L MCV MCH MCHC RDW Plt Count Neut % (Auto) Lymph % (Auto) [place] % (Auto) Eos % (Auto) Baso % (Auto) Neut # (Auto) Lymph # (Auto) [place] # (Auto) Eos # (Auto) Baso # (Auto) Sodium Potassium Chloride Carbon Dioxide BUN Creatinine Estimated GFR BUN/Creatinine Ratio Glucose Calcium Total Bilirubin AST ALT Alkaline Phosphatase Total Creatine Kinase CK-MB (CK-2) CK-MB (CK-2) Rel Index Troponin I B-Natriuretic Peptide < 100 Total Protein Albumin Globulin Albumin/Globulin Ratio Nasal Screen MRSA (PCR) Assessment & Plan (1) Atrial flutter with rapid ventricular response: Current visit: Yes Status: Acute (2) Bradycardia: Current visit: Yes Status: Acute (3) Nausea & vomiting: Current visit: Yes Status: Acute (4) Aftercare following right hip joint replacement surgery: Current visit: Yes Status: Acute Assessment & Plan narrative: EKG today at about 9:59 a.m. showed likely atrial flutter with ventricular rate about 128, poor R-wave progression, nonspecific ST-T changes. QTC 447 milliseconds. At about 2:12 p.m. she had asystole for more than 10 seconds and as per the nurse it was for about 25 seconds. As per the nurse, in the recovery patient received 2 doses of IV esmolol 10 mg each and later on 1 mg IV Lopressor. During prolonged significant bradycardia and asystole patient had nausea and vomiting as well. Now patient is in sinus rhythm. QRS is not wide. No significant QTC prolongation. No evidence of pre-excitation. On 2D echo LV function is preserved. No critical valvular pathology. IVC is not dilated. Her troponin is normal. She was not hypoxic or acidotic. Will recommend checking magnesium and TSH as well. Most likely trigger for atrial flutter/AFib postoperatively was increased sympathetic activity and trigger for bradycardia IV beta-vargas followed by increased vagal tone during nausea and vomiting. No prior history of atrial fibrillation or significant arrhythmias or structural heart disease or risk factors for coronary artery disease. When she was child she was told about mitral valve prolapse but it was never been substantiated. At this point of time her blood pressure is stable and heart rate is stable. I do not see any need for permanent pacemaker. Will recommend continuation of ICU and telemetry monitoring. No need for prolonged anticoagulation. If she gets recurrence of AFib then she will need anticoagulation. Consider PE prophylaxis. Tomorrow my associate Dr. Pina is on-call. Feel free to call him if needs further assistance. Thanks for the cardiology consult. Discussed the plan with Dr. Becerril. Time Spent With Patient Time with patient: Greater than 35 minutes (More than 70 minutes with more than 50% time [id number] counseling and coordination of care.)
--- NOTE | 2019-05-20 18:13 | P.CONS_ITS ---
History of Present Illness Date Patient Seen: 05/20/19 Chief complaint: [id number] Reason for consult: For atrial fibrillation flutter, bradycardia Narrative: This 73 years old pleasant female who denies any history of diabetes mellitus or hypertension or hyperlipidemia or previous history of myocardial infarction or congestive heart failure or rheumatic heart disease or atrial fibrillation came for elective right hip replacement surgery. This morning in the recovery patient of left atrial fibrillation with fast ventricular rate and received 2 doses of IV esmolol. She was transferred to ICU. She was lethargic. In the ICU she was nauseated and had 1 episode of vomiting. That time patient dropped her heart rate to around 29 beats per minute as well as systolic blood pressure dropped to 65. She was given IV fluid. She responded to IV fluid. Repeat CBC did not reveal any significant drop. Troponin was normal. When I arrived, echocardiogram was just done. I just revi ewed her echocardiogram immediately. Overall LV function appears to be preserved. RV function appears to be preserved. No critical valvular pathology. IVC is not dilated. No significant pericardial effusion. Patient denies any active chest pain or shortness of breath. She is lying down flat. No PND orthopnea fever chills or active bleeding from the surgical site or stroke-like symptoms. She is not tachypneic or tachycardic. She is converted to sinus rhythm. At present rhythm is sinus. Blood pressure has recovered. [facility] Medical History Back pain (Acute) Bilateral knee pain (Acute) Chronic ITP (idiopathic thrombocytopenia) (Acute) Chronic nausea (Acute) DVT (deep venous thrombosis) (Acute ~1975) Edema (Acute) Migraines (Acute) Numbness (Acute) Osteoarthritis (Acute) Pneumonia (Acute) RLS (restless legs syndrome) (Acute) Scoliosis (Acute) Surgical History Hx of appendectomy (Acute) Hx of bilateral cataract extraction (Acute ~2017) Hx of splenectomy (Acute ~1979) Hx of tonsillectomy (Acute) Social History household members: spouse Smoking Status: Never smoker alcohol intake: former Social History household members: spouse Smoking Status: Never smoker alcohol intake: former Meds Home Medications Medication Instructions Recorded Confirmed Type alendronate [Fosamax] 70 mg PO QWEEK 05/13/19 05/20/19 History multivitamin 1 cap PO DAILY 05/13/19 05/20/19 History potassium 99 mg PO DAILY 05/13/19 05/20/19 History Allergies Allergy/AdvReac Type Severity Reaction Status Date / Time petrolatum,white Allergy Severe r/t ITP Verified 05/20/19 06:44 [From Petroleum Jelly] oxycodone [From Percocet] AdvReac Severe Vomiting, Verified 05/20/19 06:44 dizziness cortisone AdvReac Unknown avoids Verified 05/20/19 07:46 steroids due to hx of chronic steroid use Aspirin Allergy Severe Avoid r/t Uncoded 05/13/19 13:05 chronic ITP Tetracycline Allergy Severe Hives Uncoded 05/13/19 13:05 Review of Systems Review of Systems Ten points review of systems were obtained and negative except as stated above Exam Vital Signs (past 8 hours): - 05/20/19 09:59 05/20/19 10:04 05/20/19 10:25 Pulse Rate 111 H 92 H 112 H Respiratory Rate 13 10 L 14 Blood Pressure 104/60 95/68 120/89 Pulse Oximetry 97 97 98 05/20/19 10:30 05/20/19 10:45 05/20/19 10:50 Pulse Rate 97 H 78 86 Respiratory Rate 13 10 L 12 Blood Pressure 97/40 L 79/38 L 82/47 L Pulse Oximetry 100 100 99 05/20/19 11:00 05/20/19 12:00 05/20/19 13:00 Pulse Rate 70 81 65 Respiratory Rate 15 12 12 Blood Pressure 101/50 L 110/58 L 69/35 L Pulse Oximetry 99 100 98 05/20/19 13:02 05/20/19 13:03 05/20/19 13:05 Pulse Rate 65 38 L 102 H Respiratory Rate 16 Blood Pressure 67/40 L 65/29 L 79/35 L Pulse Oximetry 100 100 05/20/19 13:06 05/20/19 13:20 05/20/19 13:30 Pulse Rate 74 81 80 Respiratory Rate 16 12 12 Blood Pressure 98/58 L 124/61 128/57 L Pulse Oximetry 100 100 100 05/20/19 14:00 05/20/19 14:50 Pulse Rate 88 98 H Respiratory Rate 14 12 Blood Pressure 123/66 Pulse Oximetry 100 100 Oxygen Delivery Method Nasal Cannula Oxygen Flow Rate 2 Const Other: No fever or chills Eyes Other: No significant anemia Neck Other: No significant JVD Chest Other: No chest wall tenderness Resp Other: No obvious crepitation or rhonchi Cardio Other: CVS S1-S2 normal, no S3 no S4 no significant murmur GI Other: Nontender, no obvious hepatosplenomegaly Neuro Other: No obvious motor or sensory deficit. Patient is alert orient to time place and person Extrem Other: No pedal edema Psych Other: Not agitated Objective Labs Result Diagrams: 05/20/19 14:40 05/20/19 11:08 Labs: Laboratory Results - last 24 hr 05/20/19 05/20/19 05/20/19 11:00 11:08 11:08 WBC 9.9 RBC 3.92 L Hgb 12.2 Hct 35.6 L MCV 90.9 MCH 31.2 MCHC 34.3 RDW 12.8 Plt Count 341 Neut % (Auto) 78.9 H Lymph % (Auto) 16.1 L [place] % (Auto) 3.9 Eos % (Auto) 0.3 L Baso % (Auto) 0.8 Neut # (Auto) 7800 H Lymph # (Auto) 1600 [place] # (Auto) 400 Eos # (Auto) 0 Baso # (Auto) 100 Sodium 137 Potassium 3.6 Chloride 105 Carbon Dioxide 25 BUN 7 Creatinine 0.40 L Estimated GFR > 60.0 BUN/Creatinine Ratio 17.5 Glucose 168 H Calcium 8.9 Total Bilirubin 0.4 AST 61 H ALT 63 H Alkaline Phosphatase 59 Total Creatine Kinase 83 CK-MB (CK-2) TNP CK-MB (CK-2) Rel Index TNP Troponin I < 0.012 B-Natriuretic Peptide Total Protein 5.9 L Albumin 3.5 Globulin 2.4 Albumin/Globulin Ratio 1.5 Nasal Screen MRSA (PCR) Negative for mrsa 05/20/19 05/20/19 11:08 14:40 WBC RBC Hgb 11.7 L Hct 34.9 L MCV MCH MCHC RDW Plt Count Neut % (Auto) Lymph % (Auto) [place] % (Auto) Eos % (Auto) Baso % (Auto) Neut # (Auto) Lymph # (Auto) [place] # (Auto) Eos # (Auto) Baso # (Auto) Sodium Potassium Chloride Carbon Dioxide BUN Creatinine Estimated GFR BUN/Creatinine Ratio Glucose Calcium Total Bilirubin AST ALT Alkaline Phosphatase Total Creatine Kinase CK-MB (CK-2) CK-MB (CK-2) Rel Index Troponin I B-Natriuretic Peptide < 100 Total Protein Albumin Globulin Albumin/Globulin Ratio Nasal Screen MRSA (PCR) Assessment & Plan (1) Atrial flutter with rapid ventricular response: Current visit: Yes Status: Acute (2) Bradycardia: Current visit: Yes Status: Acute (3) Nausea & vomiting: Current visit: Yes Status: Acute (4) Aftercare following right hip joint replacement surgery: Current visit: Yes Status: Acute Assessment & Plan narrative: EKG today at about 9:59 a.m. showed likely atrial flutter with ventricular rate about 128, poor R-wave progression, nonspecific ST-T changes. QTC 447 milliseconds. At about 2:12 p.m. she had asystole for more than 10 seconds and as per the nurse it was for about 25 seconds. As per the nurse, in the recovery patient received 2 doses of IV esmolol 10 mg each and later on 1 mg IV Lopressor. During prolonged significant bradycardia and asystole patient had nausea and vomiting as well. Now patient is in sinus rhythm. QRS is not wide. No significant QTC prolongation. No evidence of pre- excitation. On 2D echo LV function is preserved. No critical valvular pathology. IVC is not dilated. Her troponin is normal. She was not hypoxic or acidotic. Will recommend checking magnesium and TSH as well. Most likely tr igger for atrial flutter/AFib postoperatively was increased sympathetic activity and trigger for bradycardia IV beta-vargas followed by increased vagal tone during nausea and vomiting. No prior history of atrial fibrillation or significant arrhythmias or structural heart disease or risk factors for coronary artery disease. When she was child she was told about mitral valve prolapse but it was never been substantiated. At this point of time her blood pressure is stable and heart rate is stable. I do not see any need for permanent pacemaker. Will recommend continuation of ICU and telemetry monitoring. No need for prolonged anticoagulation. If she gets recurrence of AFib then she will need anticoagulation. Consider PE prophylaxis. Tomorrow my associate Dr. Pina is on-call. Feel free to call him if needs further assistance. Thanks for the cardiology consult. Discussed the plan with Dr. Becerril. Time Spent With Patient Time with patient: Greater than 35 minutes (More than 70 minutes with more than 50% time [id number] counseling and coordination of care.)
[2019-05-20] MEDS: CEFAZOLIN 2 GM/100 ML FROZ.PIGGY IV (18:59)
[2019-05-20 19:34] LABS: Magnesium 1.6 mg/dL (1.6-2.3)
[2019-05-20 19:41] LABS: HEMOLYSIS < 15 (0-50); Potassium 3.8 mmol/L (3.4-5.1)
[2019-05-20 19:47] LABS: Troponin I < 0.012 ng/mL (0.01-0.034)
[2019-05-20] MEDS: MAGNESIUM SULFATE 2 GM/50 ML PIGGYBACK IV (20:04)
--- NOTE | 2019-05-20 21:19 | PC.NURSE ---
Addendum entered by Leeann Patel R.N. 05/20/19 23:07: 22:20- pt requested to be repositioned in bed due to back discomfort. Then pt said i feel hot. I'm going to vomit'. HR tej down, then asystole and pt lost conciousness. Sternal rub done, calling pt's name. Pt had spontaneous return of heart rhythm. Review of telemetry shows pt when into Mob[place] type 1 briefly, deteriorated to [place] type 2 with 2:1 block, then 12 seconds of atrial activity with no ventricular response. Notified Mari HUERTA who came to review telemetry and assess pt. Original Note: imtiaz note report received. Reviewed tele event from 14:12 of a 25 second pause. Initial rhythm shows afib with controlled rate. Had brief period of sustained bradycardia, rate high 50s. Used bedpan once. Pt wanted to try sitting up on bedside commode. Assisted pt to sit at edge of bed. Pt became dizzy, nauseated, bradycardic rate 30s. B/P 73/39(55). Pt had another episode of bradycardia rate 43 with associated nausea, followed by tachycardia rate 130. Pt has now converted to SR with inverted P waves. Notified DEANNA Mckee about continued tej/tachy events and intolerance of even sitting up. Also, pt only able to keep a small amount of water down; says she cannot tolerate pain pills right now. All Irwin came to assess pt. O2 sats were 100% on 2 L/min; titrated O2 off with sats 97%. Pt remains in SR with inverted P waves.
[2019-05-20] MEDS: POTASSIUM CHLORIDE 20 MEQ in SODIUM CHLORIDE 0.9% 250 ML 130 ML IV (22:07)
[2019-05-20] MEDS: PANTOPRAZOLE 40 MG VIAL 20 MG IV (22:09)
--- NOTE | 2019-05-20 23:43 | PM.EVENT ---
Date Patient Seen: 05/19/19 Time Patient Seen: 23:09 I was called and notified of the change in patient status by the nurses in the ICU. Patient had developed a type 1 av block progressing to type 2 with 2-1 conduction with associated nausea. The patient's within community new to deteriorate to a complete heart block with a sinus mechanism approximately 60 beats per minute with no ventricular response or skate rhythm for 12 seconds during which time the patient lost consciousness. The patient has spontaneous return rhythm without electrical and chemical intervention again beginning with a type 2 second-degree heart block progressing to normal sinus rhythm at a rate approximately 100. Patient regained consciousness however remained nauseated. The patient denies complaints of shortness of breath or chest pain. The patient has stable vital signs with a heart rate of 72 with a blood pressure 126/53, respiratory rate of 20 saturating 98% on 2 L nasal cannula. Reviewed prior documentation and evaluation by Dr. Blanco cardiology. Reviewed postoperative EKGs and lab studies. The patient's postoperative H&H 11.9 and 34.9. She had troponins evaluated x2 postoperatively both less than 0.012. He was noted earlier when the patient had a transient episode of atrial flutter that she had a potassium of 3.6 which was recheck and found to be 3.8 and treated with 20 mEq of potassium IV. Her magnesium also was evaluated and found to be 1.6 for which she received 2 g of magnesium sulfate IV. Assessment and plan: 1. Acute cardiac arrhythmia, high-grade atrial ventricular block. -Transcutaneous pacemaker is applied and will pace at a rate of 80 for symptomatic 2nd degree or third-degree heart block. -repeat 12 lead EKG with findings of sinus rhythm with ventricular rate of 79 with PAC, no evidence of block, NC interval 147 milliseconds, QRS 81 milliseconds, QTC of 413 milliseconds. No evidence of ischemia or myocardial infarction. -will recheck troponin. -patient developed arrhythmia and subsequently developed nausea. -call placed leather production artisan rattle leak and squeak repairer for recommendations. 2. Transient atrial flutter, active -potassium is 3.6 will replete with 20 mEq KCL IV. -magnesium is 1.6 will replete with 2 g of Mag sulfate IV. -will closely follow electrolyte levels. -
[2019-05-20] MEDS: KETOROLAC 15 MG/ML VIAL IV (23:53)
--- NOTE | 2019-05-21 00:03 | P.EN_ITS ---
Date Patient Seen: 05/19/19 Time Patient Seen: 23:09 I was called and notified of the change in patient status by the nurses in the ICU. Patient had developed a type 1 av block progressing to type 2 with 2-1 conduction with associated nausea. The patient's within community new to deteriorate to a complete heart block with a sinus mechanism approximately 60 beats per minute with no ventricular response or skate rhythm for 12 seconds during which time the patient lost consciousness. The patient has spontaneous return rhythm without electrical and chemical intervention again beginning with a type 2 second-degree heart block progressing to normal sinus rhythm at a rate approximately 100. Patient regained consciousness however remained nauseated. The patient denies complaints of shortness of breath or chest pain. The patient has stable vital signs with a heart rate of 72 with a blood pressure 126/53, respiratory rate of 20 saturating 98% on 2 L nasal cannula. Reviewed prior documentation and evaluation by Dr. Blanco cardiology. Reviewed postoperative EKGs and lab studies. The patient's postoperative H&H 11.9 and 34.9. She had troponins evaluated x2 postoperatively both less than 0.012. He was noted earlier when the patient had a transient episode of atrial flutter that she had a potassium of 3.6 which was recheck and found to be 3.8 and treated with 20 mEq of potassium IV. Her magnesium also was evaluated and found to be 1.6 for which she received 2 g of magnesium sulfate IV. Assessment and plan: 1. Acute cardiac arrhythmia, high-grade atrial ventricular block. -Transcutaneous pacemaker is applied and will pace at a rate of 80 for symptomatic 2nd degree or third-degree heart block. -repeat 12 lead EKG with findings of sinus rhythm with ventricular rate of 79 with PAC, no evidence of block, UT interval 147 milliseconds, QRS 81 milliseconds, QTC of 413 milliseconds. No evidence of ischemia or myocardial infarction. -will recheck troponin. -patient developed arrhythmia and subsequently developed nausea. -call placed regional transportation manager quality assurance lab technician for recommendations. 2. Transient atrial flutter, active -potassium is 3.6 will replete with 20 mEq KCL IV. -magnesium is 1.6 will replete with 2 g of Mag sulfate IV. -will closely follow electrolyte levels. -
[2019-05-21 00:05] LABS: Troponin I < 0.012 ng/mL (0.01-0.034)
[2019-05-21 00:51] VITALS: BP 103/44; PULSE 74; RESP 20; O2SAT 100
[2019-05-21] MEDS: CEFAZOLIN 2 GM/100 ML FROZ.PIGGY IV (01:09)
--- NOTE | 2019-05-21 01:14 | PM.DS.1 ---
History of Present Illness Date Patient Seen: 05/21/19 Time Patient Seen: 01:15 Chief complaint: [id number] Narrative: This is a 73-year-old female patient with a history of osteoarthritis, degenerative joint disease, scoliosis, osteoporosis, migraines, idiopathic thrombocytopenic purpura and heart murmur presented [facility] for a right total hip arthroplasty through an anterior approach the morning of 05/20/2019. The hospitalist service was asked to consult when the patient was found to be in atrial fibrillation in the post anesthesia care unit. She was given 2 doses of esmolol with improvement of her heart rate. The patient is lethargic following anesthesia. Her is at the bedside and provides most of the history. Apparently the patient has no history of cardiac disease, specifically no history of arrhythmia, congestive heart failure, or prior MO. The patient does endorse a history of fainting since she was a child which is not been worked up and has undergone no cardiac evaluation or Holter/Zio monitoring. The patient was transferred from PACU to ICU. While examining the patient her heart rate dropped to 29. She became markedly hypotensive with a blood pressure of 65 systolic. The patient was laid flat IV fluids were administered and her heart rate improved to 77 with a blood pressure of 124/61. While in ICU the patient remained stable until she developed a atrial flutter with a rapid ventricular response of 140 beats per minute which resolved spontaneously. Electrolytes were evaluated and magnesium and potassium were repleted. The patient continues to have occasional PAC on cardiac monitoring. Vital signs remained stable. The patient remains free of chest pain or shortness of breath. Discharge Providers Date of admission: 05/20/19 06:00 Discharge Date: 05/21/19 Consults: 05/20/19 11:19 Consult to Discharge Planning Routine Comment: Consult to Physical Therapy Evaluate & Treat Comment: Physician Instructions: post op SEVEN protocol Consult to Respiratory Therapy Evaluate & Treat Comment: Physician Instructions: Evaluate and treat Discharge provider: DEANNA Huitron Summary Discharge Diagnosis: 1. Acute cardiac arrhythmia, new onset atrial fibrillation -identified on admission to PACU following right total hip procedure. -patient treated with esmolol 2 doses with resolution of arrhythmia. -following transfer to ICU patient developed bradycardia bleed to be vagally mediated and responded to fluid. -will continue close cardiac monitoring 2. Transient atrial flutter, active -potassium is 3.6 will replete with 20 mEq KCL IV. -magnesium is 1.6 will replete with 2 g of Mag sulfate IV. -will closely follow electrolyte levels. 3. Acute High-grade atrial ventricular block, 2nd and 3rd degree AVB, active -Transcutaneous pacemaker is applied and will pace at a rate of 80 for symptomatic 2nd degree or third-degree heart block. -repeat 12 lead EKG with findings of sinus rhythm with ventricular rate of 79 with PAC, no evidence of block, PA interval 147 milliseconds, QRS 81 milliseconds, QTC of 413 milliseconds. No evidence of ischemia or myocardial infarction. -will recheck troponin. -patient developed arrhythmia and subsequently developed nausea. -call placed forest fire prevention specialist track machine operator repairer, agree to transfer patient for consideration of permanent pacemaker implantation. 4. Chronic osteoarthritis, -Status post right anterior total hip arthroplasty 05/20/[address] Ma under general anesthesia -Dr. Bello on-call orthopedist for Dr. Ma notified of pending transfer. 5. Osteoporosis -Would consider increasing her of vitamin-D and calcium 1 she is able to take p.o. -will need to follow up on efficacy of Fosamax on bone density and may consider alternative agent as needed. 3. Chronic osteoarthritis, active -status post right anterior total hip arthroplasty by Dr. Ma on 05/20/2019 under general anesthesia. -most recent postop hemoglobin and hematocrit is 11.7 and 34.9 respectively. -pain management with Toradol 15 mg IV Q 6 hours as needed. -patient is not ambulated related to cardiac status Hospital Course: As per HPI above, patient underwent right total hip arthroplasty via anterior approach. The patient was found to have atrial fibrillation on arrival into the PACU. Patient was treated with esmolol for 2 doses. Subsequently the patient's transfer to the ICU with the patient had asymptomatic bradycardia with hypotension with a pressure of 65 believed to be vagally mediated by nausea. EKG and echocardiogram at been obtained along with cardiac enzymes which were negative and cardiac consult was provided by Dr. Blanco. Patient had 1 further self limiting episode of atrial flutter while in ICU. At approximately 10:20 this evening I was called and notified of the change in patient status by the nurses in the ICU. Patient had developed a type 1 AV block progressing to type 2 with 2-1 conduction and subsequently developed nausea. Her AVB progressed to complete heart block with a preserved sinus mechanism with a rate of approximately 60 beats per minute with no ventricular response or escape rhythm for 12 seconds during which time the patient lost consciousness. The patient has spontaneous return rhythm without electrical and chemical intervention again beginning with a type 2 second-degree heart block progressing to normal sinus rhythm at a rate approximately 100. Patient regained consciousness however remained nauseated. The patient denies complaints of shortness of breath or chest pain. The patient has stable vital signs with a heart rate of 72 with a blood pressure 126/53, respiratory rate of 20 saturating 98% on 2 L nasal cannula. Contacted Dr. Michel, on-call track machine operator repairer who had discussed the case with Dr. Blanco. Reviewed the case in general and then specifics of the most recent events as noted above. It was felt from Cardiology standpoint the patient will be best served by transfer and consideration of implantation of permanent pacemaker. Dr. Bello, the forest fire prevention specialist orthopod, is notified who was covering for Dr. Ma. Discuss the patient transfer with the patient and her including risks and benefits of transfer and expected outcome. The patient and her agreed to the transfer. Status at Discharge Cognitive/behavioral status at discharge: oriented Functional status at discharge: bed bound (Status post total hip arthroplasty anterior approach this morning. Has not yet ambulated.) Overall status at discharge: patient is not back to baseline Time Spent with Patient Greater than 30 minutes Exam Vital Signs (past 8 hours): - 05/20/19 17:30 05/20/19 17:45 05/20/19 18:00 Pulse Rate 81 69 69 Respiratory Rate Blood Pressure 128/58 L 136/54 L 116/55 L Pulse Oximetry 05/20/19 18:15 05/20/19 18:30 05/20/19 18:46 Pulse Rate 65 84 88 Respiratory Rate Blood Pressure 115/52 L 128/50 L 73/39 L Pulse Oximetry 05/20/19 18:48 05/20/19 19:00 05/20/19 21:30 Pulse Rate 113 H 84 72 Respiratory Rate Blood Pressure 128/72 105/78 104/51 L Pulse Oximetry 05/20/19 22:00 05/20/19 22:30 05/20/19 23:00 Pulse Rate 74 69 82 Respiratory Rate Blood Pressure 106/53 L 113/48 L 126/53 L Pulse Oximetry 05/20/19 23:36 05/20/19 23:42 05/20/19 23:53 Pulse Rate 72 75 73 Respiratory Rate 22 14 14 Blood Pressure 81/41 L 128/43 L Pulse Oximetry 98 96 100 05/21/19 00:51 Pulse Rate 74 Respiratory Rate 20 Blood Pressure 103/44 L Pulse Oximetry 100 Oxygen Delivery Method Room Air,Nasal Cannula Oxygen Flow Rate 2 Narrative Exam Narrative: GENERAL APPEARANCE: well developed, under weight with BMI 16.2, in no acute distress. HEENT: Normocephalic, atraumatic, SYED, sclera non-icteric, extraocular movement intact, no rhinorrhea, oral mucosa moist without lesions or exudate, posterior pharynx without inflammation. NECK/THYROID: neck supple, no jugular venous distention, no carotid bruit, no thyromegaly, trachea midline. LYMPH NODES: no cervical or supraclavicular lymphadenopathy. SKIN: warm and dry, good turgor. HEART: regular rate and rhythm, 1/6 systolic murmur, no rubs or gallops, brisk capillary refill LUNGS: clear to auscultation bilaterally, no coarseness crackles or wheezing, no cough present ABDOMEN: Soft, no distention, no epigastric or abdominal tenderness on palpation EXTREMITIES: Fresh surgical wound right anterior hip without bleeding, moves all extremities, distal CMS intact. NEUROLOGIC: AAO x4, no focal neurologic deficits. PSYCH: alert, cognitive function intact, good eye contact, appropriate with stable behavior Objective Labs Result Diagrams: 05/20/19 14:40 05/20/19 19:15 Labs: Laboratory Results - last 24 hr 05/20/19 05/20/19 05/20/19 11:00 11:08 11:08 WBC 9.9 RBC 3.92 L Hgb 12.2 Hct 35.6 L MCV 90.9 MCH 31.2 MCHC 34.3 RDW 12.8 Plt Count 341 Neut % (Auto) 78.9 H Lymph % (Auto) 16.1 L [place] % (Auto) 3.9 Eos % (Auto) 0.3 L Baso % (Auto) 0.8 Neut # (Auto) 7800 H Lymph # (Auto) 1600 [place] # (Auto) 400 Eos # (Auto) 0 Baso # (Auto) 100 Sodium 137 Potassium 3.6 Chloride 105 Carbon Dioxide 25 BUN 7 Creatinine 0.40 L Estimated GFR > 60.0 BUN/Creatinine Ratio 17.5 Glucose 168 H Calcium 8.9 Magnesium Total Bilirubin 0.4 AST 61 H ALT 63 H Alkaline Phosphatase 59 Total Creatine Kinase 83 CK-MB (CK-2) TNP CK-MB (CK-2) Rel Index TNP Troponin I < 0.012 B-Natriuretic Peptide Total Protein 5.9 L Albumin 3.5 Globulin 2.4 Albumin/Globulin Ratio 1.5 Nasal Screen MRSA (PCR) Negative for mrsa 05/20/19 05/20/19 05/20/19 11:08 14:40 19:15 WBC RBC Hgb 11.7 L Hct 34.9 L MCV MCH MCHC RDW Plt Count Neut % (Auto) Lymph % (Auto) [place] % (Auto) Eos % (Auto) Baso % (Auto) Neut # (Auto) Lymph # (Auto) [place] # (Auto) Eos # (Auto) Baso # (Auto) Sodium Potassium Chloride Carbon Dioxide BUN Creatinine Estimated GFR BUN/Creatinine Ratio Glucose Calcium Magnesium 1.6 Total Bilirubin AST ALT Alkaline Phosphatase Total Creatine Kinase CK-MB (CK-2) CK-MB (CK-2) Rel Index Troponin I B-Natriuretic Peptide < 100 Total Protein Albumin Globulin Albumin/Globulin Ratio Nasal Screen MRSA (PCR) 05/20/19 05/20/19 05/20/19 19:15 19:15 23:35 WBC RBC Hgb Hct MCV MCH MCHC RDW Plt Count Neut % (Auto) Lymph % (Auto) [place] % (Auto) Eos % (Auto) Baso % (Auto) Neut # (Auto) Lymph # (Auto) [place] # (Auto) Eos # (Auto) Baso # (Auto) Sodium Potassium 3.8 Chloride Carbon Dioxide BUN Creatinine Estimated GFR BUN/Creatinine Ratio Glucose Calcium Magnesium Total Bilirubin AST ALT Alkaline Phosphatase Total Creatine Kinase CK-MB (CK-2) CK-MB (CK-2) Rel Index Troponin I < 0.012 < 0.012 B-Natriuretic Peptide Total Protein Albumin Globulin Albumin/Globulin Ratio Nasal Screen MRSA (PCR) Discharge Plan Discharge Plan Transfer to: [facility] Under care of provider: Dr. Hidalgo Transportation: Ambulance Discharge comment: Dr. Bello, Orthopedics notified of transfer and will contact Ortho attending in the morning The receiving facility has agreed to accept transfer and provide medical treatment.: Yes Discharge Med Rec/Prescriptions Prescriptions: Continued alendronate [Fosamax] 70 mg Tablet 70 mg PO QWEEK RF: 0 potassium 99 mg Tablet 99 mg PO DAILY RF: 0 multivitamin Capsule 1 cap PO DAILY RF: 0 Discharge Orders: Discharge (Order); Ordered 05/21/19 Ordered By: Aris Irwin Discharge Health Status Brief summary of current health status: The patient is being transferred to [facility] via ambulance with cardiac monitoring, IV infusing and oxygen with transcutaneous pacing in place on standby. Precautions: [place] Provider Discharge Instructions Diet comment: Heart healthy Activity: Progressive ambulation under physical therapy treatment plan Cold/Heat Therapy: Eyes packs as needed right hip Oxygen: Oxygen is in needed to maintain SpO2 greater than 93% Other treatments: Transcutaneous pacing as needed for symptomatic bradycardia. Discharge Data Attending Provider: Benjamín Ma Admit Date/Time: 05/20/19 06:00
--- NOTE | 2019-05-21 01:16 | PC.NURSE ---
Addendum entered by Claudia Mirza R.N. 05/21/19 03:29: 0305 Patient transfered to [facility]. Prior to leaving the ICU, patient had another brief syncopal episode with 10 second pause, it was precipitated by nausea, no emesis, total of 8mg IV Zofran given. 2mg PO Dilaudid given at 0230 for Rt hip pain. Patient oriented upon discharge. Report called to Mio at receiving facility. All belongings sent with . Original Note: Patient is A/Ox3, mildly anxious, medicated with IV Toradol for Rt hip pain and leg cramps 20meq K+ rider complete, LR @ 125ml/hr infusing. SR with PACa, rate 70s, BP 126/53(80), SpO2 99% on RA, c/o trouble breathing RR 14-20, breath sounds CTA, placed on 1L NC, says that's better Voided 150ml vikas urine on bedpan. Rt hip aquacel drsg D/I, CMS intact. Patient talked to who is going to come in per patient's request.
--- NOTE | 2019-05-21 01:17 | P.DS_ITS ---
History of Present Illness Date Patient Seen: 05/21/19 Time Patient Seen: 01:15 Chief complaint: [id number] Narrative: This is a 73-year-old female patient with a history of osteoarthritis, degenerative joint disease, scoliosis, osteoporosis, migraines, idiopathic thrombocytopenic purpura and heart murmur presented [facility] for a right total hip arthroplasty through an anterior approach the morning of 05/20/2019. The hospitalist service was asked to consult when the patient was found to be in atrial fibrillation in the post anesthesia care unit. She was given 2 doses of esmolol with improvement of her heart rate. The patient is lethargic following anesthesia. Her is at the bedside and provides most of the history. Apparently the patient has no history of cardiac disease, specifically no history of arrhythmia, congestive heart failure, or prior PR. The patient does endorse a history of fainting since she was a child which is not been worked up and has undergone no cardiac evaluation or Holter/Zio monitoring. The patient was transferred from PACU to ICU. While examining the patient her heart rate dropped to 29. She became markedly hypotensive with a blood pressure of 65 systolic. The patient was laid flat IV fluids were administered and her heart rate improved to 77 with a blood pressure of 124/61. While in ICU the patient remained stable until she developed a atrial flutter with a rapid ventricular response of 140 beats per minute which resolved sp ontaneously. Electrolytes were evaluated and magnesium and potassium were repleted. The patient continues to have occasional PAC on cardiac monitoring. Vital signs remained stable. The patient remains free of chest pain or shortness of breath. Discharge Providers Date of admission: 05/20/19 06:00 Discharge Date: 05/21/19 Consults: 05/20/19 11:19 Consult to Discharge Planning Routine Comment: Consult to Physical Therapy Evaluate & Treat Comment: Physician Instructions: post op SEVEN protocol Consult to Respiratory Therapy Evaluate & Treat Comment: Physician Instructions: Evaluate and treat Discharge provider: DEANNA Huitron Summary Discharge Diagnosis: 1. Acute cardiac arrhythmia, new onset atrial fibrillation -identified on admission to PACU following right total hip procedure. -patient treated with esmolol 2 doses with resolution of arrhythmia. -following transfer to ICU patient developed bradycardia bleed to be vagally mediated and responded to fluid. -will continue close cardiac monitoring 2. Transient atrial flutter, active -potassium is 3.6 will replete with 20 mEq KCL IV. -magnesium is 1.6 will replete with 2 g of Mag sulfate IV. -will closely follow electrolyte levels. 3. Acute High-grade atrial ventricular block, 2nd and 3rd degree AVB, active -Transcutaneous pacemaker is applied and will pace at a rate of 80 for symptomatic 2nd degree or third-degree heart block. -repeat 12 lead EKG with findings of sinus rhythm with ventricular rate of 79 with PAC, no evidence of block, MS interval 147 milliseconds, QRS 81 milliseconds, QTC of 413 milliseconds. No evidence of ischemia or myocardial infarction. -will recheck troponin. -patient developed arrhythmia and subsequently developed nausea. -call placed weapons system instrument mechanic family helper, agree to transfer patient for consideration of permanent pacemaker implantation. 4. Chronic osteoarthritis, -Status post right anterior total hip arthroplasty 05/20/[address] Ma under general anesthesia -Dr. Bello on-call orthopedist for Dr. Ma notified of pending transfer. 5. Osteoporosis -Would consider increasing her of vitamin-D and calcium 1 she is able to take p.o. -will need to follow up on efficacy of Fosamax on bone density and may consider alternative agent as needed. 3. Chronic osteoarthritis, active -status post right anterior total hip arthroplasty by Dr. Ma on 05/20/2019 under general anesthesia. -most recent postop hemoglobin and hematocrit is 11.7 and 34.9 respectively. -pain management with Toradol 15 mg IV Q 6 hours as needed. -patient is not ambulated related to cardiac status Hospital Course: As per HPI above, patient underwent right total hip arthroplasty via anterior approach. The patient was found to have atrial fibrillation on arrival into the PACU. Patient was treated with esmolol for 2 doses. Subsequently the patient's transfer to the ICU with the patient had asymptomatic bradycardia with hypotension with a pressure of 65 believed to be vagally mediated by nausea. EKG and echocardiogram at been obtained along with cardiac enzymes which were negative and cardiac consult was provided by Dr. Blanco. Patient had 1 further self limiting episode of atrial flutter while in ICU. At approximately 10:20 this evening I was called and notified of the change in patient status by the nurses in the ICU. Patient had developed a type 1 AV block progressing to type 2 with 2-1 conduction and subsequently developed nausea. Her AVB progressed to complete heart block with a preserved sinus mechanism with a rate of approximately 60 beats per minute with no ventricular response or escape rhythm for 12 seconds during which time the patient lost consciousness. The patient has spontaneous return rhythm without electrical and chemical intervention again beginning with a type 2 second-degree heart block progressing to normal sinus rhythm at a rate approximately 100. Patient regained consciousness however remained nauseated. The patient denies complaints of shortness of breath or chest pain. The patient has stable vital signs with a heart rate of 72 with a blood pressure 126/53, respiratory rate of 20 saturating 98% on 2 L nasal cannula. Contacted Dr. Michel, on-call family helper who had discussed the case with Dr. Blanco. Reviewed the case in general and then specifics of the most recent events as noted above. It was felt from Cardiology standpoint the patient will be best served by transfer and consideration of implantation of permanent pacemaker. Dr. Bello, the weapons system instrument mechanic orthopod, is notified who was covering for Dr. Ma. Discuss the patient transfer with the patient and her including risks and benefits of transfer and expected outcome. The patient and her agreed to the transfer. Status at Discharge Cognitive/behavioral status at discharge: oriented Functional status at discharge: bed bound (Status post total hip arthroplasty anterior approach this morning. Has not yet ambulated.) Overall status at discharge: patient is not back to baseline Time Spent with Patient Greater than 30 minutes Exam Vital Signs (past 8 hours): - 05/20/19 17:30 05/20/19 17:45 05/20/19 18:00 Pulse Rate 81 69 69 Respiratory Rate Blood Pressure 128/58 L 136/54 L 116/55 L Pulse Oximetry 05/20/19 18:15 05/20/19 18:30 05/20/19 18:46 Pulse Rate 65 84 88 Respiratory Rate Blood Pressure 115/52 L 128/50 L 73/39 L Pulse Oximetry 05/20/19 18:48 05/20/19 19:00 05/20/19 21:30 Pulse Rate 113 H 84 72 Respiratory Rate Blood Pressure 128/72 105/78 104/51 L Pulse Oximetry 05/20/19 22:00 05/20/19 22:30 05/20/19 23:00 Pulse Rate 74 69 82 Respiratory Rate Blood Pressure 106/53 L 113/48 L 126/53 L Pulse Oximetry 05/20/19 23:36 05/20/19 23:42 05/20/19 23:53 Pulse Rate 72 75 73 Respiratory Rate 22 14 14 Blood Pressure 81/41 L 128/43 L Pulse Oximetry 98 96 100 05/21/19 00:51 Pulse Rate 74 Respiratory Rate 20 Blood Pressure 103/44 L Pulse Oximetry 100 Oxygen Delivery Method Room Air,Nasal Cannula Oxygen Flow Rate 2 Narrative Exam Narrative: GENERAL APPEARANCE: well developed, under weight with BMI 16.2, in no acute distress. HEENT: Normocephalic, atraumatic, SYED, sclera non-icteric, extraocular movement intact, no rhinorrhea, oral mucosa moist without lesions or exudate, posterior pharynx without inflammation. NECK/THYROID: neck supple, no jugular venous distention, no carotid bruit, no thyromegaly, trachea midline. LYMPH NODES: no cervical or supraclavicular lymphadenopathy. SKIN: warm and dry, good turgor. HEART: regular rate and rhythm, 1/6 systolic murmur, no rubs or gallops, brisk capillary refill LUNGS: clear to auscultation bilaterally, no coarseness crackles or wheezing, no cough present ABDOMEN: Soft, no distention, no epigastric or abdominal tenderness on palpation EXTREMITIES: Fresh surgical wound right anterior hip without bleeding, moves all extremities, distal CMS intact. NEUROLOGIC: AAO x4, no focal neurologic deficits. PSYCH: alert, cognitive function intact, good eye contact, appropriate with stable behavior Objective Labs Result Diagrams: 05/20/19 14:40 05/20/19 19:15 Labs: Laboratory Results - last 24 hr 05/20/19 05/20/19 05/20/19 11:00 11:08 11:08 WBC 9.9 RBC 3.92 L Hgb 12.2 Hct 35.6 L MCV 90.9 MCH 31.2 MCHC 34.3 RDW 12.8 Plt Count 341 Neut % (Auto) 78.9 H Lymph % (Auto) 16.1 L Alexander % (Auto) 3.9 Eos % (Auto) 0.3 L Baso % (Auto) 0.8 Neut # (Auto) 7800 H Lymph # (Auto) 1600 Alexander # (Auto) 400 Eos # (Auto) 0 Baso # (Auto) 100 Sodium 137 Potassium 3.6 Chloride 105 Carbon Dioxide 25 BUN 7 Creatinine 0.40 L Estimated GFR > 60.0 BUN/Creatinine Ratio 17.5 Glucose 168 H Calcium 8.9 Magnesium Total Bilirubin 0.4 AST 61 H ALT 63 H Alkaline Phosphatase 59 Total Creatine Kinase 83 CK-MB (CK-2) TNP CK-MB (CK-2) Rel Index TNP Troponin I < 0.012 B-Natriuretic Peptide Total Protein 5.9 L Albumin 3.5 Globulin 2.4 Albumin/Globulin Ratio 1.5 Nasal Screen MRSA (PCR) Negative for mrsa 05/20/19 05/20/19 05/20/19 11:08 14:40 19:15 WBC RBC Hgb 11.7 L Hct 34.9 L MCV MCH MCHC RDW Plt Count Neut % (Auto) Lymph % (Auto) Alexander % (Auto) Eos % (Auto) Baso % (Auto) Neut # (Auto) Lymph # (Auto) Alexander # (Auto) Eos # (Auto) Baso # (Auto) Sodium Potassium Chloride Carbon Dioxide BUN Creatinine Estimated GFR BUN/Creatinine Ratio Glucose Calcium Magnesium 1.6 Total Bilirubin AST ALT Alkaline Phosphatase Total Creatine Kinase CK-MB (CK-2) CK-MB (CK-2) Rel Index Troponin I B-Natriuretic Peptide < 100 Total Protein Albumin Globulin Albumin/Globulin Ratio Nasal Screen MRSA (PCR) 05/20/19 05/20/19 05/20/19 19:15 19:15 23:35 WBC RBC Hgb Hct MCV MCH MCHC RDW Plt Count Neut % (Auto) Lymph % (Auto) Alexander % (Auto) Eos % (Auto) Baso % (Auto) Neut # (Auto) Lymph # (Auto) Alexander # (Auto) Eos # (Auto) Baso # (Auto) Sodium Potassium 3.8 Chloride Carbon Dioxide BUN Creatinine Estimated GFR BUN/Creatinine Ratio Glucose Calcium Magnesium Total Bilirubin AST ALT Alkaline Phosphatase Total Creatine Kinase CK-MB (CK-2) CK-MB (CK-2) Rel Index Troponin I < 0.012 < 0.012 B-Natriuretic Peptide Total Protein Albumin Globulin Albumin/Globulin Ratio Nasal Screen MRSA (PCR) Discharge Plan Discharge Plan Transfer to: [facility] Under care of provider: Dr. Hidalgo Transportation: Ambulance Discharge comment: Dr. Bello, Orthopedics notified of transfer and will contact Ortho attending in the morning The receiving facility has agreed to accept transfer and provide medical treatment.: Yes Discharge Med Rec/Prescriptions Prescriptions: Continued alendronate [Fosamax] 70 mg Tablet 70 mg PO QWEEK RF: 0 potassium 99 mg Tablet 99 mg PO DAILY RF: 0 multivitamin Capsule 1 cap PO DAILY RF: 0 Discharge Orders: Discharge (Order); Ordered 05/21/19 Ordered By: Aris Irwin Discharge Health Status Brief summary of current health status: The patient is being transferred to [facility] via ambulance with cardiac monitoring, IV infusing and oxygen with transcutaneous pacing in place on standby. Precautions: [place] Provider Discharge Instructions Diet comment: Heart healthy Activity: Progressive ambulation under physical therapy treatment plan Cold/Heat Therapy: Eyes packs as needed right hip Oxygen: Oxygen is in needed to maintain SpO2 greater than 93% Other treatments: Transcutaneous pacing as needed for symptomatic bradycardia. Discharge Data Attending Provider: Benjamín Ma Admit Date/Time: 05/20/19 06:00
[2019-05-21 01:32] VITALS: BP 90/44; PULSE 88; RESP 19; O2SAT 100
[2019-05-21] MEDS: HYDROMORPHONE 2 MG TABLET PO (02:26)
[2019-05-21] MEDS: ONDANSETRON 4 MG/2 ML INJ IV ×2 (02:43→03:08)
[2019-05-21 02:54] VITALS: BP 125/52; PULSE 94; RESP 12; O2SAT 99
== END 2019-05-21 03:05 | disposition short-term general hospital (02) | DRG 470 ==
LOC: AC 08:50 → ICU 10:45
PROVIDERS: Anesthesiology; Internal Medicine; Nurse Practitioner Adult Health; Admitting Provider Orthopaedic Surgery; Visit Provider Orthopaedic Surgery
PROC: 0SR902Z Replacement of Right Hip Joint with Metal on Polyethylene Synthetic Substitute, Open Approach (ICD-10-PCS; CPT 27130; principal; 2019-05-20 07:45)
DX: M16.11 Unilateral primary osteoarthritis, right hip (principal); D69.3 Immune thrombocytopenic purpura; I48.92 Unspecified atrial flutter; I44.2 Atrioventricular block, complete; I95.9 Hypotension, unspecified; I48.91 Unspecified atrial fibrillation; R00.2 Palpitations; R01.1 Cardiac murmur, unspecified; M81.0 Age-related osteoporosis without current pathological fracture; R11.2 Nausea with vomiting, unspecified
CPT/HCPCS: 36415; 71275; 72170; 76000; 80053; 82550; 83735; 83880; 84132; 84484; 85014; 85018; 85025; 87797; 93005; 93306; C1776; C9113; J0690; J1100; J1170; J1885; J2250; J2270; J2405; J2704; J2765; J3010; J3480; Q9967

== ENCOUNTER 2019-05-28 10:59 | Emergency (ER) | payer MEDICARE, OTHER, SELFPAY ==
[2019-05-20 06:39] VITALS: BMI 16.2
[2019-05-28 10:21] VITALS: BP 161/67; PULSE 97; RESP 17; O2SAT 100
--- NOTE | 2019-05-28 11:10 | DI.RAD.S_ITS ---
PROCEDURE: XR CHEST 1V INDICATIONS: Syncope post pacemaker insertion TECHNIQUE: One view of the chest was acquired. COMPARISON: [facility], CR, XR CHEST 2V, 02/19/2019, 15:27. [facility], CR, XR CHEST 1 VIEW, 05/21/2019, 19:48. [facility], CR, XR CHEST 1 VIEW, 05/22/2019, 6:10. FINDINGS: Surgical changes and devices: There is a cardiac pacemaker with a single lead projecting to the cardiac apex. The position of cardiac pacer leads is unchanged. Multiple surgical clips in the left upper quadrant. Lungs and pleura: Lungs are clear. Hyperinflation consistent with COPD. No pleural effusions or pneumothorax. Mediastinum: Mediastinal contours appear normal. Heart size is normal. Bones and chest wall: No suspicious bony lesions. Overlying soft tissues appear unremarkable. Scoliosis and degenerative changes in spine. IMPRESSION: 1. Cardiac pacemaker a single lead projecting to the apex. 2. No acute cardiopulmonary disease. 3. COPD. Dictated by: Collin Perales M.D. on 05/28/2019 at 12:22 Approved by: Collin Perales M.D. on 05/28/2019 at 12:25
--- NOTE | 2019-05-28 11:12 | ED.WEAKNESS ---
HPI - Weakness <Oksana StephensonDEANNA - Last Filed: 05/28/19 18:32> General Chief complaint: Weakness Stated complaint: Near syncope/weak Time Seen by Provider: 05/28/19 10:59 Source: patient, family and EMS Mode of arrival: EMS History of Present Illness HPI Narrative: 73-year-old female with history of a flutter, recent right hip replacement, and recent pacemaker placement due to complete heart block after hip replacement surgery, presents to the emergency department today via EMS for continued vomiting, diarrhea, no p.o. intake for the past 3 days. Her states he noticed new episodes of what he calls ?syncope?, however EMS describes it as the patient is talking, and then begins word-finding, this started about 4:00 a.m. this morning and worsened in frequency until about noon when he called the medics. Patient states she has been vomiting since she was discharged from the hospital after her pacemaker insertion. Her states for the past 30 years she is always nauseated when she wakes up, she occasionally passes out in the morning about twice a month requiring him put a cold washcloth over her forehead and to get her a Pepsi for the episode to subside. She denies chest pain, shortness of breath, or abdominal pain. Patient is a very poor historian and continues to tell us that she did not need a pacemaker as she often passes out and we should have let her bear until she woke up. Patient appears very pale, and has difficulty moving herself around in the bed. Related Data Home Medications Medication Instructions Recorded Confirmed alendronate [Fosamax] 70 mg PO QWEEK 05/13/19 05/28/19 multivitamin 1 cap PO DAILY 05/13/19 05/28/19 potassium 99 mg PO DAILY 05/13/19 05/28/19 Excedrin Aspirin Free 0.5 tab PO PRN PRN 05/28/19 05/28/19 Stool Softener 1 cap PO BID 05/28/19 05/28/19 acetaminophen 1 tab PO Q6-8H PRN 05/28/19 05/28/19 cephalexin 500 mg PO [id number] 05/28/19 05/28/19 hydrocodone-acetaminophen 1 - 2 tab PO Q4-6H PRN 05/28/19 05/28/19 hydroxyzine HCl 25 mg PO Q6H 05/28/19 05/28/19 ibuprofen 1 tab PO Q4-6H PRN 05/28/19 05/28/19 Allergies Allergy/AdvReac Type Severity Reaction Status Date / Time [email or web address] Allergy Severe r/t ITP Verified 05/20/19 06:44 [From Petroleum Jelly] oxycodone [From Percocet] AdvReac Severe Vomiting, Verified 05/20/19 06:44 dizziness cortisone AdvReac Unknown avoids Verified 05/20/19 07:46 steroids due to hx of chronic steroid use Aspirin Allergy Severe Avoid r/t Uncoded 05/13/19 13:05 chronic ITP Tetracycline Allergy Severe Hives Uncoded 05/13/19 13:05 Review of Systems <DEANNA Menjiavr - Last Filed: 05/28/19 18:32> Review of Systems REVIEW OF SYSTEMS: GENERAL: Denies fever, chills, malaise, or wt. loss. HENT: No head trauma, hearing loss, rhinorrhea, epistaxis, sinus pressure, sore throat, or dysphagia. EYES: No loss of vision, double vision, eye pain, or irritation. CARDIOVASCULAR: No chest pain, palpitations, edema, or orthopnea. Patient reports increased weakness, see HPI. RESPIRATORY: No shortness of breath, cough, or wheeze. GASTROINTESTINAL: Patient reports nausea, see HPI. GENITOURINARY: No flank pain, hesitancy, frequency, or dysuria. Patient reports urinary incontinence since surgery, see HPI. MUSCULOSKELETAL: Complains of right hip pain from the surgery that is worse with movement, see HPI. Patient reports increased weakness. INTEGUMENTARY: No rash, lesions, or pruritus. NEURO: No numbness, tingling, memory loss, or headaches. Has been states she was having episodes of word-finding, see HPI. PSYCH: No behavior or mood changes. ENDOCRINOLOGY: Patient states she is always cold, this been this way for 30 years, see HPI. HEMATOLOGY: No easy bruising. LYMPHATIC: No lymphadenopathy. PFSH <DEANNA Menjivar - Last Filed: 05/28/19 18:32> Medical History Back pain (Acute) Bilateral knee pain (Acute) Chronic ITP (idiopathic thrombocytopenia) (Acute) Chronic nausea (Acute) DVT (deep venous thrombosis) (Acute ~1975) Edema (Acute) Migraines (Acute) Numbness (Acute) Osteoarthritis (Acute) Pneumonia (Acute) RLS (restless legs syndrome) (Acute) Scoliosis (Acute) Surgical History Hx of appendectomy (Acute) Hx of bilateral cataract extraction (Acute ~2017) Hx of splenectomy (Acute ~1979) Hx of tonsillectomy (Acute) Social History household members: spouse Smoking Status: Never smoker alcohol intake: former Social History household members: spouse Smoking Status: Never smoker alcohol intake: former Exam <DEANNA Menjivar - Last Filed: 05/28/19 18:32> Initial Vital Signs Initial Vital Signs: Vital Signs Pulse Rate 97 H 05/28/19 10:21 Respiratory Rate 17 05/28/19 10:21 Blood Pressure 161/67 H 05/28/19 10:21 Pulse Oximetry 100 05/28/19 10:21 PHYSICAL EXAMINATION: GENERAL: Well groomed, alert. Initially patient answers questions and around about way, continually referencing that she was upset she had a pacemaker placed. After numerous re-evaluations patient was faster to respond to questions and remained on track, mentation status improved after 2 L of fluid. Vital signs noted. HENT: Normocephalic, atraumatic.. Oral mucosa is very dry, Pharynx without erythema. EYES: PERRLA, EOMIs, conjunctiva pink, sclera white, no periorbital swelling. NECK: Full range of motion, nontender. LYMPH: No lymphadenopathy. CHEST: Normal to inspection and without deformities. Pacemaker noted to left upper chest, incision is healing well without erythema or discharge. CARDIOVASCULAR: S1 and S2 sounds normal. Rate is sinus tach with regular rhythm, no murmurs, clicks, or bruits. Her heart rate increased course in the stay when she was up walking around, and was frustrated and wanted to go home. RESPIRATORY: Normal respiratory rate, trachea midline, airway patent. No stridor, nasal flaring or accessory muscle use. Lungs are clear in all reyna without wheeze, rhonchi, or crackles. GASTROINTESTINAL: Bowel sounds normoactive. Abdomen is soft, slight tenderness noted to right upper quadrant pain with deep palpation. No organomegaly. MUSCULOSKELETAL: Significant bruising to right thigh due to recent hip replacement, incision is intact without erythema, swelling, or discharge. Patient is able to ambulate within the assistance of a walker, she is able to sit and stand without assistance. Equal tone and mass bilaterally. Upper extremities exhibit equal strength bilaterally. EXTREMITIES: Right calf tenderness with palpation, no swelling or erythema. Increased edema to right lower foot since surgery. Patient able to bend and straighten both lower extremities. SKIN: Warm, dry, soft, appropriate color for ethnicity. All incision sites appear intact without erythema. NEURO: Alert and Oriented X 3. CN III-XII intact. Good coordination. No ataxia, or sensory deficits. Serial NIH scores were zero. Initially patient was slow to answer questions however she answers them appropriately. She did not exhibit any pauses in conversation when I was talking to her. However, she continued to go back to her frustration about getting a pacemaker when she was asked multiple questions. This lasted for the 1st 20 minutes, after the 1st L fluid she answered questions directly in still occasionally talked about her pacemaker. Upon discharge she was able to eat and drink, so complaining about her pacemaker at this point, stated she was 100% back to normal and she has been that way throughout the emergency department stay. PSYCH: Patient exhibited agitation towards the end of the stay especially when she went to return home. <Scott Braun DO - Last Filed: 05/28/19 19:13> Initial Vital Signs Initial Vital Signs: Vital Signs Pulse Rate 97 H 05/28/19 10:21 Respiratory Rate 17 05/28/19 10:21 Blood Pressure 161/67 H 05/28/19 10:21 Pulse Oximetry 100 05/28/19 10:21 Course <DEANNA Menjivar - Last Filed: 05/28/19 18:32> Orders Ordered: ED Orders 05/28/19 11:05 EKG-12 Lead Stat 05/28/19 11:09 B Type Natriuretic Peptide Stat 05/28/19 11:10 XR chest 1V Stat 05/28/19 11:15 Complete Blood Count AUTO DIFF Stat Comprehensive Metabolic Panel Stat Magnesium Stat Procalcitonin Stat Prothrombin Time INR Stat Troponin & CK Cardiac Panel Stat 05/28/19 11:44 CT head/brain wo con Stat 05/28/19 12:00 Lactate (Lactic Acid) Stat 05/28/19 12:07 US periph venous low extrem rt Stat 05/28/19 12:10 US abdomen limited Stat 05/28/19 14:26 Urine Microscopic Stat Discontinued Medications Sodium Chloride (Normal Saline 0.9%) 1,000 mls @ 1,000 mls/hr IV BOLUS ONE Stop: 05/28/19 12:07 Last Infusion: 05/28/19 13:10 Dose: 0 mls/hr Admin: 05/28/19 12:10 Dose: 1,000 mls/hr Ondansetron HCl (Zofran) 4 mg IV NOW ONE Stop: 05/28/19 11:12 Reevaluation(s) Reevaluation #1: Upon re-evaluation 20 minutes after the patient arrived, her reports she is neurologically 100% back to normal. Patient resisting exam stating she wants go home.. Reevaluation #2: [facility]'s (pacemaker specialist) nurse at bedside to check pacemaker. She states that her pacemaker interrogation is not reporting any significant findings, report was sent to Dr. Scott. The report reveals 0 pacemaker responses, base rate is 60, BP < 1%, Mode VVI. The patient states she is feeling much better, she is awake and alert talking in complete sentences. She states she would like to go home at this time. Time: 15:32 Reevaluation #3: Patient was able to ambulate more than 30 ft, able to use the bathroom with her walker, during this she denies shortness of breath, chest pain, extreme hip pain. She states she feels great and would like to go home. She feels more weak than normal, and extensive conversation with patient about the importance of needing to eat and drink fluids. She continues to state that her stomach is small and she can only take small bites that she has been this way most of her entire life. She refuses any more pain medication, nausea medication, and absolutely does not want to stay in the hospital. Consultations Consultation #1: Patient staffed with Dr. Braun. Consultation #2: Consult with face worker, Dr. Yang about patient's tachycardia. He states that she can have additional fluid, and if the tachycardia persists she can be sent home on a small dose of a beta-vargas and follow-up with cardiology. Discussed this with patient, she denied wanting any more fluid as she wants to return home. I thought this was appropriate as she was taking oral fluids. She did not want any more medication including a beta-vargas, she states the medications cause her to feel terrible. Her and her understood the importance of follow-up with cardiology within the next few days. Over 10 minutes was spent discussing with patient the importance of eating and drinking as well as when to return to the emergency department if symptoms worsen. Vital Signs - 8 hr 05/28/19 12:05 05/28/19 13:30 05/28/19 15:23 Temperature 98.7 F Pulse Rate 99 H 103 H Respiratory Rate 22 Blood Pressure [Left Arm] 174/72 H Pulse Oximetry 98 99 05/28/19 16:30 Temperature Pulse Rate 121 H Respiratory Rate Blood Pressure [Left Arm] 144/58 H Pulse Oximetry 99 <Scott Braun, DO - Last Filed: 05/28/19 19:13> Orders Ordered: ED Orders 05/28/19 11:05 EKG-12 Lead Stat 05/28/19 11:09 B Type Natriuretic Peptide Stat 05/28/19 11:10 XR chest 1V Stat 05/28/19 11:15 Complete Blood Count AUTO DIFF Stat Comprehensive Metabolic Panel Stat Magnesium Stat Procalcitonin Stat Prothrombin Time INR Stat Troponin & CK Cardiac Panel Stat 05/28/19 11:44 CT head/brain wo con Stat 05/28/19 12:00 Lactate (Lactic Acid) Stat 05/28/19 12:07 US periph venous low extrem rt Stat 05/28/19 12:10 US abdomen limited Stat 05/28/19 14:26 Urine Microscopic Stat Discontinued Medications Sodium Chloride (Normal Saline 0.9%) 1,000 mls @ 1,000 mls/hr IV BOLUS ONE Stop: 05/28/19 12:07 Last Infusion: 05/28/19 13:10 Dose: 0 mls/hr Admin: 05/28/19 12:10 Dose: 1,000 mls/hr Ondansetron HCl (Zofran) 4 mg IV NOW ONE Stop: 05/28/19 11:12 Vital Signs - 8 hr 05/28/19 12:05 05/28/19 13:30 05/28/19 15:23 Temperature 98.7 F Pulse Rate 99 H 103 H Respiratory Rate 22 Blood Pressure [Left Arm] 174/72 H Pulse Oximetry 98 99 05/28/19 16:30 Temperature Pulse Rate 121 H Respiratory Rate Blood Pressure [Left Arm] 144/58 H Pulse Oximetry 99 MDM - Weakness <DEANNA Menjivar - Last Filed: 05/28/19 18:32> Medical Records Attestation: I reviewed the patient's medical records. Lab Data Attestation: I reviewed the patient's lab results. Result diagrams: 05/28/19 11:15 05/28/19 11:15 Lab Results 05/28/19 05/28/19 05/28/19 Range/Units 11:09 11:15 11:15 WBC 9.7 (4.5-11.0) X10^3/uL RBC 3.67 L (4.0-5.2) X10^6/uL Hgb 11.6 L (12.0-16.0) g/dL Hct 34.4 L (36-46) % MCV 93.7 (80-100) fL MCH 31.6 (26-34) PG MCHC 33.7 (30-36) % RDW 14.0 (11.6-14.8) % Plt Count 442 H (150-400) X10^3/uL Neut % (Auto) Not Reportable Lymph % (Auto) Not Reportable [place] % (Auto) Not Reportable Eos % (Auto) Not Reportable Baso % (Auto) Not Reportable Lymph # (Auto) Not Reportable [place] # (Auto) Not Reportable Baso # (Auto) Not Reportable Total Counted 100 Seg Neutrophils % 57.0 (38-70) % Band Neutrophils % 4.0 (3-7) % Lymphocytes % (Manual) 22.0 L (25-45) % Atypical Lymphs % 3.0 H ( - 0) % Monocytes % (Manual) 14.0 H (2-11) % Neutrophils # (Manual) 5917 H (0721-6601) /uL RBC Morphology Not Reportable Polychromasia 1+ H Anisocytosis 2+ H PT (10.1-12.7) SECONDS INR (0.9-1.3) Sodium 137 (137-145) mmol/L Potassium 3.9 (3.4-5.1) mmol/L Chloride 99 (98-107) mmol/L Carbon Dioxide 28 (22-32) mmol/L BUN 7 (7-17) mg/dL Creatinine 0.40 L (0.52-1.04) mg/dL Estimated GFR > 60.0 (>60) mL/min BUN/Creatinine Ratio 17.5 (6-22) Glucose 105 (80-110) mg/dL Lactate (0.7-2.1) mmol/L Calcium 10.0 (8.4-10.2) mg/dL Magnesium (1.6-2.3) mg/dL Total Bilirubin 1.6 H (0.2-1.3) mg/dL AST 67 H (14-36) IU/L ALT 39 (9-52) IU/L Alkaline Phosphatase 80 (38-126) U/L Total Creatine Kinase 51 (30-135) U/L CK-MB (CK-2) TNP CK-MB (CK-2) Rel Index TNP Troponin I < 0.012 (0.01-0.034) ng/mL B-Natriuretic Peptide < 100 (<100) Total Protein 7.2 (6.3-8.2) g/dL Albumin 4.3 (3.5-5.0) g/dL Globulin 2.9 (1.7-4.1) g/dL Albumin/Globulin Ratio 1.5 (1.0-2.8) Procalcitonin (<0.5) ng/mL Urine RBC (0-5/HPF) Urine WBC (0-5/HPF) Ur Squamous Epith Cells (0-5/HPF) Urine Bacteria (None) Ur Culture Indicated? 05/28/19 05/28/19 05/28/19 Range/Units 11:15 11:15 11:15 WBC (4.5-11.0) X10^3/uL RBC (4.0-5.2) X10^6/uL Hgb (12.0-16.0) g/dL Hct (36-46) % MCV (80-100) fL MCH (26-34) PG MCHC (30-36) % RDW (11.6-14.8) % Plt Count (150-400) X10^3/uL Neut % (Auto) Lymph % (Auto) [place] % (Auto) Eos % (Auto) Baso % (Auto) Lymph # (Auto) [place] # (Auto) Baso # (Auto) Total Counted Seg Neutrophils % (38-70) % Band Neutrophils % (3-7) % Lymphocytes % (Manual) (25-45) % Atypical Lymphs % ( - 0) % Monocytes % (Manual) (2-11) % Neutrophils # (Manual) (8130-6003) /uL RBC Morphology Polychromasia Anisocytosis PT 10.4 (10.1-12.7) SECONDS INR 0.9 (0.9-1.3) Sodium (137-145) mmol/L Potassium (3.4-5.1) mmol/L Chloride (98-107) mmol/L Carbon Dioxide (22-32) mmol/L BUN (7-17) mg/dL Creatinine (0.52-1.04) mg/dL Estimated GFR (>60) mL/min BUN/Creatinine Ratio (6-22) Glucose (80-110) mg/dL Lactate (0.7-2.1) mmol/L Calcium (8.4-10.2) mg/dL Magnesium 2.1 (1.6-2.3) mg/dL Total Bilirubin (0.2-1.3) mg/dL AST (14-36) IU/L ALT (9-52) IU/L Alkaline Phosphatase (38-126) U/L Total Creatine Kinase (30-135) U/L CK-MB (CK-2) CK-MB (CK-2) Rel Index Troponin I (0.01-0.034) ng/mL B-Natriuretic Peptide (<100) Total Protein (6.3-8.2) g/dL Albumin (3.5-5.0) g/dL Globulin (1.7-4.1) g/dL Albumin/Globulin Ratio (1.0-2.8) Procalcitonin 0.05 (<0.5) ng/mL Urine RBC (0-5/HPF) Urine WBC (0-5/HPF) Ur Squamous Epith Cells (0-5/HPF) Urine Bacteria (None) Ur Culture Indicated? 05/28/19 05/28/19 Range/Units 12:00 14:26 WBC (4.5-11.0) X10^3/uL RBC (4.0-5.2) X10^6/uL Hgb (12.0-16.0) g/dL Hct (36-46) % MCV (80-100) fL MCH (26-34) PG MCHC (30-36) % RDW (11.6-14.8) % Plt Count (150-400) X10^3/uL Neut % (Auto) Lymph % (Auto) [place] % (Auto) Eos % (Auto) Baso % (Auto) Lymph # (Auto) [place] # (Auto) Baso # (Auto) Total Counted Seg Neutrophils % (38-70) % Band Neutrophils % (3-7) % Lymphocytes % (Manual) (25-45) % Atypical Lymphs % ( - 0) % Monocytes % (Manual) (2-11) % Neutrophils # (Manual) (4709-1406) /uL RBC Morphology Polychromasia Anisocytosis PT (10.1-12.7) SECONDS INR (0.9-1.3) Sodium (137-145) mmol/L Potassium (3.4-5.1) mmol/L Chloride (98-107) mmol/L Carbon Dioxide (22-32) mmol/L BUN (7-17) mg/dL Creatinine (0.52-1.04) mg/dL Estimated GFR (>60) mL/min BUN/Creatinine Ratio (6-22) Glucose (80-110) mg/dL Lactate 1.1 (0.7-2.1) mmol/L Calcium (8.4-10.2) mg/dL Magnesium (1.6-2.3) mg/dL Total Bilirubin (0.2-1.3) mg/dL AST (14-36) IU/L ALT (9-52) IU/L Alkaline Phosphatase (38-126) U/L Total Creatine Kinase (30-135) U/L CK-MB (CK-2) CK-MB (CK-2) Rel Index Troponin I (0.01-0.034) ng/mL B-Natriuretic Peptide (<100) Total Protein (6.3-8.2) g/dL Albumin (3.5-5.0) g/dL Globulin (1.7-4.1) g/dL Albumin/Globulin Ratio (1.0-2.8) Procalcitonin (<0.5) ng/mL Urine RBC None seen (0-5/HPF) Urine WBC 0-1/hpf (0-5/HPF) Ur Squamous Epith Cells 0-1 /hpf (0-5/HPF) Urine Bacteria None seen (None) Ur Culture Indicated? Cult not indicated Urine Dip Bedside Urine Glucose Negative Bedside Urine Bilirubin - Negative Bedside Urine Ketone +/- 5 Urine Specific [place] 1.015 Bedside Urine Occult Blood - Negative Bedside Urine pH 7.5 Bedside Urine Protein - Negative Bedside Urine Urobilinogen - Negative Bedside Urine Nitrite - Negative Bedside Urine Leukocytes - Negative Esterase Imaging Data Chest XR: Radiologist's impression: [address] [address] XRay Report Signed Patient: Rose Head FMR#: [id number] : 1945cct:[id number] Age/Sex: 73 / FDate of Service: 05/28/19 Loc: ED Accession Number: [id number] Procedure: XR chest 1V Ordering Provider: Oksana Stephenson PROCEDURE: XR CHEST 1V INDICATIONS: Syncope post pacemaker insertion TECHNIQUE: One view of the chest was acquired. COMPARISON: [facility], CR, XR CHEST 2V, 02/19/2019, 15:27. [facility], CR, XR CHEST 1 VIEW, 05/21/2019, 19:48. [facility], CR, XR CHEST 1 VIEW, 05/22/2019, 6:10. FINDINGS: Surgical changes and devices: There is a cardiac pacemaker with a single lead projecting to the cardiac apex. The position of cardiac pacer leads is unchanged. Multiple surgical clips in the left upper quadrant. Lungs and pleura: Lungs are clear. Hyperinflation consistent with COPD. No pleural effusions or pneumothorax. Mediastinum: Mediastinal contours appear normal. Heart size is normal. Bones and chest wall: No suspicious bony lesions. Overlying soft tissues appear unremarkable. Scoliosis and degenerative changes in spine. IMPRESSION: 1. Cardiac pacemaker a single lead projecting to the apex. 2. No acute cardiopulmonary disease. 3. COPD. Dictated by: Collin Perales M.D. on 05/28/2019 at 12:22 Approved by: Collin Perales M.D. on 05/28/2019 at 12:[address]: Radiologist's impression: [address] [address] [address] Scan Report Signed Patient: Rose Head FMR#: [id number] : [id number] Age/Sex: 73 / FDate of Service: 05/28/19 Loc: ED Accession Number: [id number] Procedure: CT head/brain wo con Ordering Provider: Oksana Stephenson PROCEDURE: CT HEAD/BRAIN WO CON INDICATIONS: Episodes of word finding, post surgery TECHNIQUE: Noncontrast 4.5 mm thick angled axial sections acquired from the foramen magnum to the vertex, with coronal and sagittal reformats. For radiation dose reduction, the following was used: automated exposure control, adjustment of mA and/or kV according to patient size. COMPARISON: None. FINDINGS: Image quality: Excellent. CSF spaces: Basal cisterns are patent. No extra-axial fluid collections. The ventricles are symmetric in size and shape. Brain: No intracranial bleeds or masses. There is mild cerebral volume loss for age, with resultant ventricular and sulcal prominence. There are moderate periventricular and deep white matter chronic small vessel ischemic changes. There is intracranial internal carotid artery atherosclerosis. Skull and face: Calvarium and visualized facial bones appear intact, without suspicious lesions. Sinuses: Visualized sinuses and mastoids are clear. IMPRESSION: 1. No acute intracranial abnormalities. 2. Cerebral volume loss and chronic microvascular ischemic changes. Dictated by: Collin Perales M.D. on 05/28/2019 at 12:21 Approved by: Collin Perales M.D. on 05/28/2019 at 12:21 US - abdomen: Radiologist's impression: [address] [address] Ultrasound Report Signed Patient: Rose Head FMR#: [id number] : 7Acct:[id number] Age/Sex: 73 / FDate of Service: 05/28/19 Loc: ED Accession Number: [id number] Procedure: US abdomen limited Ordering Provider: Oksana Stephenson PROCEDURE: US ABDOMEN LIMITED INDICATIONS: ELEVATED BILIRUBIN TECHNIQUE: Real-time focused scanning was performed of the abdomen, with image documentation. COMPARISON: None. FINDINGS: The liver is normal in size. There is no focal liver lesion. No intrahepatic or intrahepatic biliary dilatation is evident. The common bile duct measures approximately 4 mm in diameter. The gallbladder is normal in size without gallbladder wall thickening, pericholecystic fluid, or cholelithiasis. The pancreas was obscured by overlying bowel gas. No free fluid is seen within the upper abdomen. The right kidney was not imaged. IMPRESSION: No cholelithiasis or evidence of acute cholecystitis. Dictated by: Michael Chairez M.D. on 05/28/2019 at 12:28 Approved by: Michael Chairez M.D. on 05/28/2019 at 12:31 RLE US: Radiologist's impression: [address] [address] Ultrasound Report Signed Patient: Rose Head FMR#: [id number] : 1945Acct:[id number] Age/Sex: 73 / FDate of Service: 05/28/19 Loc: ED Accession Number: [id number] Procedure: US periph venous low extrem rt Ordering Provider: Oksana Stephenson PROCEDURE: US PERIPH VENOUS LOW EXTREM RT INDICATIONS: RIGHT LEG PAIN POST RIGHT HIP REPLACEMENT TECHNIQUE: Real-time imaging, as well as color and pulse Doppler interrogation, were performed of the lower extremity deep veins from the inguinal ligament to the popliteal fossa. COMPARISON: None. FINDINGS: The common femoral, femoral and popliteal veins are normally compressible, and free of intraluminal thrombus. Color and pulse Doppler demonstrate normal phasic intraluminal flow. There is normal augmentation response to distal compression maneuver. IMPRESSION: No evidence of deep vein thrombosis of the right lower extremity. Dictated by: Michael Chairez M.D. on 05/28/2019 at 12:08 Approved by: Michael Chairez M.D. on 05/28/2019 at 12:27 ECG Data Interpretation: Sinus tachycardia, rate 100, VT interval 157, QTC 390, no ectopy no ST elevation or ST depression. No T-wave abnormality. Possible left ventricle enlargement noted in V4-V6. Dr. Braun also reviewed EKG. Patient currently has a pacemaker. MDM Narrative Medical decision making narrative: I suspect that patient's symptoms are caused by dehydration and lack of adequate nutrition (no neurological deficit, patient's resolution of symptoms occurred after hydration and p.o. intake, patient was able to ambulate around the department after eating states she felt much better). Low suspicion for infection due to normal white blood cell count, normal lactic acid, normal procalcitonin, unremarkable chest x-ray, unremarkable urinalysis, benign exam, afebrile, as well as intact sutures sites without erythema. Little concern for arrhythmia due to unremarkable EKG, no a arrhythmias noted during monitoring specialist emergency department, no episodes of pacemaker activation after pacemaker interrogation, and normal cardiac enzymes. Ultrasound of lower extremity was done to rule out a DVT as patient had tenderness to her calf, venous ultrasound was negative. Due to elevated bilirubin and right upper quadrant pain, limited abdominal ultrasound was done to rule out gallbladder issues, these results were negative for cholecystitis or cholelithiasis. Low suspicion for stroke due to negative head CT, and serial NIH scores of 0, as well as vague history of symptoms. Well TIA remains in the differential, this is likes likely as her describes episodes of ?syncope ?as positive their conversations, she has an extensive history of syncopal episode levery morning for the past 30 years, a patient's neuro exam remained intact throughout the stay. Low suspicion of PE as she has not exhibited any shortness of breath, hypoxia, or chest pain while at rest or walking around the room. I suspect her tachycardia triggers and the stay was due to her increasing frustration that she wanted to return home, as she was standing at multiple nurses about being uncomfortable a hospital. Also contact the face worker about this, she refused all medication and refused extra fluids. Very strict return precautions were given to the patient, discussed instructions follow up with a face worker within the next few days. Both the patient and her understood the importance of fluid intake, nutrient intake, and follow-up. <Scott Braun, DO - Last Filed: 05/28/19 19:13> Lab Data Lab Results 05/28/19 05/28/19 05/28/19 Range/Units 11:09 11:15 11:15 WBC 9.7 (4.5-11.0) X10^3/uL RBC 3.67 L (4.0-5.2) X10^6/uL Hgb 11.6 L (12.0-16.0) g/dL Hct 34.4 L (36-46) % MCV 93.7 (80-100) fL MCH 31.6 (26-34) PG MCHC 33.7 (30-36) % RDW 14.0 (11.6-14.8) % Plt Count 442 H (150-400) X10^3/uL Neut % (Auto) Not Reportable Lymph % (Auto) Not Reportable [place] % (Auto) Not Reportable Eos % (Auto) Not Reportable Baso % (Auto) Not Reportable Lymph # (Auto) Not Reportable [place] # (Auto) Not Reportable Baso # (Auto) Not Reportable Total Counted 100 Seg Neutrophils % 57.0 (38-70) % Band Neutrophils % 4.0 (3-7) % Lymphocytes % (Manual) 22.0 L (25-45) % Atypical Lymphs % 3.0 H ( - 0) % Monocytes % (Manual) 14.0 H (2-11) % Neutrophils # (Manual) 5917 H (7312-7455) /uL RBC Morphology Not Reportable Polychromasia 1+ H Anisocytosis 2+ H PT (10.1-12.7) SECONDS INR (0.9-1.3) Sodium 137 (137-145) mmol/L Potassium 3.9 (3.4-5.1) mmol/L Chloride 99 (98-107) mmol/L Carbon Dioxide 28 (22-32) mmol/L BUN 7 (7-17) mg/dL Creatinine 0.40 L (0.52-1.04) mg/dL Estimated GFR > 60.0 (>60) mL/min BUN/Creatinine Ratio 17.5 (6-22) Glucose 105 (80-110) mg/dL Lactate (0.7-2.1) mmol/L Calcium 10.0 (8.4-10.2) mg/dL Magnesium (1.6-2.3) mg/dL Total Bilirubin 1.6 H (0.2-1.3) mg/dL AST 67 H (14-36) IU/L ALT 39 (9-52) IU/L Alkaline Phosphatase 80 (38-126) U/L Total Creatine Kinase 51 (30-135) U/L CK-MB (CK-2) TNP CK-MB (CK-2) Rel Index TNP Troponin I < 0.012 (0.01-0.034) ng/mL B-Natriuretic Peptide < 100 (<100) Total Protein 7.2 (6.3-8.2) g/dL Albumin 4.3 (3.5-5.0) g/dL Globulin 2.9 (1.7-4.1) g/dL Albumin/Globulin Ratio 1.5 (1.0-2.8) Procalcitonin (<0.5) ng/mL Urine RBC (0-5/HPF) Urine WBC (0-5/HPF) Ur Squamous Epith Cells (0-5/HPF) Urine Bacteria (None) Ur Culture Indicated? 05/28/19 05/28/19 05/28/19 Range/Units 11:15 11:15 11:15 WBC (4.5-11.0) X10^3/uL RBC (4.0-5.2) X10^6/uL Hgb (12.0-16.0) g/dL Hct (36-46) % MCV (80-100) fL MCH (26-34) PG MCHC (30-36) % RDW (11.6-14.8) % Plt Count (150-400) X10^3/uL Neut % (Auto) Lymph % (Auto) [place] % (Auto) Eos % (Auto) Baso % (Auto) Lymph # (Auto) [place] # (Auto) Baso # (Auto) Total Counted Seg Neutrophils % (38-70) % Band Neutrophils % (3-7) % Lymphocytes % (Manual) (25-45) % Atypical Lymphs % ( - 0) % Monocytes % (Manual) (2-11) % Neutrophils # (Manual) (0626-5099) /uL RBC Morphology Polychromasia Anisocytosis PT 10.4 (10.1-12.7) SECONDS INR 0.9 (0.9-1.3) Sodium (137-145) mmol/L Potassium (3.4-5.1) mmol/L Chloride (98-107) mmol/L Carbon Dioxide (22-32) mmol/L BUN (7-17) mg/dL Creatinine (0.52-1.04) mg/dL Estimated GFR (>60) mL/min BUN/Creatinine Ratio (6-22) Glucose (80-110) mg/dL Lactate (0.7-2.1) mmol/L Calcium (8.4-10.2) mg/dL Magnesium 2.1 (1.6-2.3) mg/dL Total Bilirubin (0.2-1.3) mg/dL AST (14-36) IU/L ALT (9-52) IU/L Alkaline Phosphatase (38-126) U/L Total Creatine Kinase (30-135) U/L CK-MB (CK-2) CK-MB (CK-2) Rel Index Troponin I (0.01-0.034) ng/mL B-Natriuretic Peptide (<100) Total Protein (6.3-8.2) g/dL Albumin (3.5-5.0) g/dL Globulin (1.7-4.1) g/dL Albumin/Globulin Ratio (1.0-2.8) Procalcitonin 0.05 (<0.5) ng/mL Urine RBC (0-5/HPF) Urine WBC (0-5/HPF) Ur Squamous Epith Cells (0-5/HPF) Urine Bacteria (None) Ur Culture Indicated? 05/28/19 05/28/19 Range/Units 12:00 14:26 WBC (4.5-11.0) X10^3/uL RBC (4.0-5.2) X10^6/uL Hgb (12.0-16.0) g/dL Hct (36-46) % MCV (80-100) fL MCH (26-34) PG MCHC (30-36) % RDW (11.6-14.8) % Plt Count (150-400) X10^3/uL Neut % (Auto) Lymph % (Auto) [place] % (Auto) Eos % (Auto) Baso % (Auto) Lymph # (Auto) [place] # (Auto) Baso # (Auto) Total Counted Seg Neutrophils % (38-70) % Band Neutrophils % (3-7) % Lymphocytes % (Manual) (25-45) % Atypical Lymphs % ( - 0) % Monocytes % (Manual) (2-11) % Neutrophils # (Manual) (6140-5971) /uL RBC Morphology Polychromasia Anisocytosis PT (10.1-12.7) SECONDS INR (0.9-1.3) Sodium (137-145) mmol/L Potassium (3.4-5.1) mmol/L Chloride (98-107) mmol/L Carbon Dioxide (22-32) mmol/L BUN (7-17) mg/dL Creatinine (0.52-1.04) mg/dL Estimated GFR (>60) mL/min BUN/Creatinine Ratio (6-22) Glucose (80-110) mg/dL Lactate 1.1 (0.7-2.1) mmol/L Calcium (8.4-10.2) mg/dL Magnesium (1.6-2.3) mg/dL Total Bilirubin (0.2-1.3) mg/dL AST (14-36) IU/L ALT (9-52) IU/L Alkaline Phosphatase (38-126) U/L Total Creatine Kinase (30-135) U/L CK-MB (CK-2) CK-MB (CK-2) Rel Index Troponin I (0.01-0.034) ng/mL B-Natriuretic Peptide (<100) Total Protein (6.3-8.2) g/dL Albumin (3.5-5.0) g/dL Globulin (1.7-4.1) g/dL Albumin/Globulin Ratio (1.0-2.8) Procalcitonin (<0.5) ng/mL Urine RBC None seen (0-5/HPF) Urine WBC 0-1/hpf (0-5/HPF) Ur Squamous Epith Cells 0-1 /hpf (0-5/HPF) Urine Bacteria None seen (None) Ur Culture Indicated? Cult not indicated Urine Dip Bedside Urine Glucose Negative Bedside Urine Bilirubin - Negative Bedside Urine Ketone +/- 5 Urine Specific [place] 1.015 Bedside Urine Occult Blood - Negative Bedside Urine pH 7.5 Bedside Urine Protein - Negative Bedside Urine Urobilinogen - Negative Bedside Urine Nitrite - Negative Bedside Urine Leukocytes - Negative Esterase Discharge Plan Departure Patient Disposition: Home Clinical Impression: Dehydration Discharge Date/Time: 05/28/19 17:06 Interventions: ED Discharge Assessment Last Done: 05/28/19 17:05 Instructions: DI for Dehydration -- Adult Activity Restrictions/Additional Instructions: Thank you for entrusting me with your care today. As discussed, your ultrasounds, head CT, chest x-ray, and lab work were negative for acute findings other than dehydration. Please make sure to eat and drink enough throughout the day. I spoke with a face worker from [facility] about your high heart rate, please follow up with them in the next few days. Call them for an appointment. Return to the emergency department if he develops chest pain, shortness of breath, facial droop, or other neurological changes. Prescriptions: No Action alendronate [Fosamax] 70 mg Tablet 70 mg PO QWEEK RF: 0 potassium 99 mg Tablet 99 mg PO DAILY RF: 0 multivitamin Capsule 1 cap PO DAILY RF: 0 hydrocodone-acetaminophen 5-325 mg tablet 1 - 2 tab PO Q4-6H PRN (Reason: pain) RF: 0 cephalexin 500 mg capsule 500 mg PO [id number] RF: 0 hydroxyzine HCl 25 mg tablet 25 mg PO Q6H RF: 0 Excedrin Aspirin Free 0.5 tab PO PRN PRN (Reason: pain) RF: 0 Stool Softener 1 cap PO BID RF: 0 acetaminophen 1 tab PO Q6-8H PRN (Reason: pain) RF: 0 ibuprofen 1 tab PO Q4-6H PRN (Reason: pain) RF: 0 <Scott Braun DO - Last Filed: 05/28/19 19:13> Can ED Attending Caitlyn Attestation: I was available for consultation during this patient's emergency department encounter
[2019-05-28 11:23] LABS: INR 0.9 (0.9-1.3); Prothrombin Time 10.4 SECONDS (10.1-12.7)
[2019-05-28 11:29] LABS: Hematocrit 34.4 % (36-46); Hemoglobin 11.6 g/dL (12.0-16.0); Mean Corpuscular HGB Conc 33.7 % (30-36); Mean Corpuscular Hemoglobin 31.6 PG (26-34); Mean Corpuscular Volume 93.7 fL (80-100); Platelet Count 442 X10^3/uL (150-400); Red Blood Cell Count 3.67 X10^6/uL (4.0-5.2); White Blood Cell Count 9.7 X10^3/uL (4.5-11.0)
[2019-05-28 11:31] LABS: Add Manual Diff / Slide Review YES
[2019-05-28 11:32] LABS: Magnesium 2.1 mg/dL (1.6-2.3)
[2019-05-28 11:34] LABS: Alanine Aminotransferase 39 IU/L (9-52); Albumin 4.3 g/dL (3.5-5.0); Albumin Globulin Ratio 1.5 (1.0-2.8); Alkaline Phosphatase 80 U/L (38-126); Aspartate Aminotransferase 67 IU/L (14-36); BUN Creatinine Ratio 17.5 (6-22); Bilirubin Total 1.6 mg/dL (0.2-1.3); Blood Urea Nitrogen 7 mg/dL (7-17); Carbon Dioxide 28 mmol/L (22-32); Chloride 99 mmol/L (98-107); Creatine Kinase 51 U/L (30-135); Estimated Glomerular Filt Rate > 60.0 mL/min (>60); Globulin 2.9 g/dL (1.7-4.1); Glucose 105 mg/dL (80-110); HEMOLYSIS 25 (0-50); Potassium 3.9 mmol/L (3.4-5.1); Sodium 137 mmol/L (137-145); Total Protein 7.2 g/dL (6.3-8.2)
[2019-05-28 11:37] LABS: B Type Natriuretic Peptide < 100 (<100)
--- NOTE | 2019-05-28 11:43 | PC.NURSE ---
hx of right hip replacement monday (7 days ago), s/p pacemaker, here for vomiting and diarrhea, also mental status change onset at 3am. last known normal at 11pm per spouse. on arrival incontinent of urine ((large amount). c/o severe pain. right hip incision site clean dry, right lower leg wiith swelling, concern for dvt.
--- NOTE | 2019-05-28 11:44 | DI.CT.S_ITS ---
PROCEDURE: CT HEAD/BRAIN WO CON INDICATIONS: Episodes of word finding, post surgery TECHNIQUE: Noncontrast 4.5 mm thick angled axial sections acquired from the foramen magnum to the vertex, with coronal and sagittal reformats. For radiation dose reduction, the following was used: automated exposure control, adjustment of mA and/or kV according to patient size. COMPARISON: None. FINDINGS: Image quality: Excellent. CSF spaces: Basal cisterns are patent. No extra-axial fluid collections. The ventricles are symmetric in size and shape. Brain: No intracranial bleeds or masses. There is mild cerebral volume loss for age, with resultant ventricular and sulcal prominence. There are moderate periventricular and deep white matter chronic small vessel ischemic changes. There is intracranial internal carotid artery atherosclerosis. Skull and face: Calvarium and visualized facial bones appear intact, without suspicious lesions. Sinuses: Visualized sinuses and mastoids are clear. IMPRESSION: 1. No acute intracranial abnormalities. 2. Cerebral volume loss and chronic microvascular ischemic changes. Dictated by: Collin Perales M.D. on 05/28/2019 at 12:21 Approved by: Collin Perales M.D. on 05/28/2019 at 12:21
[2019-05-28 11:46] LABS: Troponin I < 0.012 ng/mL (0.01-0.034)
[2019-05-28 11:48] LABS: Neutrophils Absolute Manual 5917 /uL (3000-5900); Total Cells Counted 100
[2019-05-28 11:49] LABS: Anisocytosis 2+; Polychromasia 1+
[2019-05-28 11:51] LABS: Procalcitonin 0.05 ng/mL (<0.5)
--- NOTE | 2019-05-28 11:57 | PC.NURSE ---
everything they gave me , making me very ill, ((medications)
[2019-05-28 12:05] VITALS: TEMP 37.1
--- NOTE | 2019-05-28 12:07 | DI.US.S_ITS ---
PROCEDURE: US PERIPH VENOUS LOW EXTREM RT INDICATIONS: RIGHT LEG PAIN POST RIGHT HIP REPLACEMENT TECHNIQUE: Real-time imaging, as well as color and pulse Doppler interrogation, were performed of the lower extremity deep veins from the inguinal ligament to the popliteal fossa. COMPARISON: None. FINDINGS: The common femoral, femoral and popliteal veins are normally compressible, and free of intraluminal thrombus. Color and pulse Doppler demonstrate normal phasic intraluminal flow. There is normal augmentation response to distal compression maneuver. IMPRESSION: No evidence of deep vein thrombosis of the right lower extremity. Dictated by: Michael Chairez M.D. on 05/28/2019 at 12:08 Approved by: Michael Chairez M.D. on 05/28/2019 at 12:27
[2019-05-28] MEDS: SODIUM CHLORIDE 0.9% 1,000 ML 1000 ML IV (12:10)
--- NOTE | 2019-05-28 12:10 | DI.US.S_ITS ---
PROCEDURE: US ABDOMEN LIMITED INDICATIONS: ELEVATED BILIRUBIN TECHNIQUE: Real-time focused scanning was performed of the abdomen, with image documentation. COMPARISON: None. FINDINGS: The liver is normal in size. There is no focal liver lesion. No intrahepatic or intrahepatic biliary dilatation is evident. The common bile duct measures approximately 4 mm in diameter. The gallbladder is normal in size without gallbladder wall thickening, pericholecystic fluid, or cholelithiasis. The pancreas was obscured by overlying bowel gas. No free fluid is seen within the upper abdomen. The right kidney was not imaged. IMPRESSION: No cholelithiasis or evidence of acute cholecystitis. Dictated by: Michael Chairez M.D. on 05/28/2019 at 12:28 Approved by: Michael Chairez M.D. on 05/28/2019 at 12:31
[2019-05-28 12:19] LABS: Lactate (Lactic Acid) 1.1 mmol/L (0.7-2.1)
[2019-05-28 13:30] VITALS: PULSE 99; RESP 22; O2SAT 98
[2019-05-28 14:57] LABS: Bacteria Urine None Seen; RBC Urine None Seen (0-5/HPF)
[2019-05-28 15:11] LABS: Culture Indicated Urine Cult Not Indicated; Squamous Epithelial Cell Urine 0-1 /HPF (0-5/HPF); WBC Urine 0-1/HPF (0-5/HPF)
--- NOTE | 2019-05-28 15:12 | PC.NURSE ---
Patient provided water and m&ms. Patients will go get her some food. Rep from [facility] at bedside to analyze threshold of pacer.
[2019-05-28 15:23] VITALS: BP 174/72; PULSE 103; O2SAT 99
[2019-05-28 16:30] VITALS: BP 144/58; PULSE 121; O2SAT 99
--- NOTE | 2019-05-28 17:29 | PC.NURSE ---
ANIMAL HUSBANDMAN: pts vitals were taken after ambulating, while sitting, and talking.
== END 2019-05-28 17:06 | disposition home or self-care (01) ==
PROVIDERS: Emergency Provider Nurse Practitioner
DX: E86.0 Dehydration (principal); R00.0 Tachycardia, unspecified; Z95.0 Presence of cardiac pacemaker
CPT/HCPCS: 70450; 71045; 76705; 80053; 81003; 81015; 82550; 83605; 83735; 83880; 84145; 84484; 85025; 85610; 93005; 93971; 96360; 99285

== ENCOUNTER → 2025-03-03 15:07 | Outpatient (CLI) | payer MEDICARE, OTHER, SELFPAY ==
[2019-05-20 06:39] VITALS: BMI 16.2
[2025-03-03 16:03] LABS: Hematocrit 39.9 % (36-46); Hemoglobin 13.4 g/dL (12.0-16.0); Mean Corpuscular HGB Conc 33.7 % (30-36); Mean Corpuscular Hemoglobin 32.1 PG (26-34); Mean Corpuscular Volume 95.3 fL (80-100); Platelet Count 269 X10^3/uL (150-400); Red Blood Cell Count 4.19 X10^6/uL (4.0-5.2); Red Cell Distribution Width 13.9 % (11.6-14.8); White Blood Cell Count 7.2 X10^3/uL (4.5-11.0)
[2025-03-03 16:25] LABS: Alanine Aminotransferase 81 IU/L (<35); Albumin 4.2 g/dL (3.5-5.0); Albumin Globulin Ratio 1.6 (1.0-2.8); Alkaline Phosphatase 93 U/L (38-126); Aspartate Aminotransferase 112 IU/L (14-36); BUN Creatinine Ratio 15.4 (6-22); Bilirubin Total 0.9 mg/dL (0.2-1.3); Blood Urea Nitrogen 8 mg/dL (7-17); Carbon Dioxide 29 mmol/L (22-32); Chloride 101 mmol/L (98-107); Estimated Glomerular Filt Rate > 60 mL/min (>60); Globulin 2.6 g/dL (1.7-4.1); Glucose 83 mg/dL (80-110); HEMOLYSIS < 15 (0-50); Potassium 4.8 mmol/L (3.4-5.1); Sodium 135 mmol/L (137-145); Total Protein 6.8 g/dL (6.3-8.2)
== END ==
PROVIDERS: PCP Nurse Practitioner Family; Referring Provider Nurse Practitioner Family; Visit Provider Nurse Practitioner Family
DX: E87.8 Other disorders of electrolyte and fluid balance, not elsewhere classified (principal); I44.2 Atrioventricular block, complete
CPT/HCPCS: 36415; 80053; 85027